=== PATIENT | female | born 1945 | race Caucasian/White ===

== ENCOUNTER → 2017-05-07 | Outpatient (CLI) | payer OTHER ==
[~2017-05-07] MED LIST: ALBU0.08 INH; ALBUAER19 INH; AMLO10TA2 PO; ASPCH81X PO; ASTN NAE; ATOR-22 PO; AZIT250T PO; CALC-416 PO; CETI10TA10 PO; DIBU1OIN EX; DOCU100C PO; DVN/160 PO; FISHOIL PO; FLUT0.15; FLX/5 PO; FURO-85 PO; MCRK20 PO; MECL25TA2 PO; MOME200A INH; MONT1TAB5 PO; MULTTAB58 PO; PRED10TA PO; SALI0.6510 NAE; SENN8.6T13 PO; TIOTCAP INH; VALA1TAB PO; [UNRECOGNIZED DRUG - CODE] RE
[2017-05-07 13:24] LABS: BASO % 0.4 %; BASO ABS # 0.03 K/uL (0-0.2); COMPLETE YES; EOS % 9.5 %; HEMATOCRIT 41.2 % (37-47); IG% 0.5 %; LYMPH ABS # 1.25 K/uL (1.2-3.4); MEAN CELL VOLUME 93.6 fL (80-100); MEAN PLATELET VOLUME 9.2 fL (7.4-10.4); MONO % 7.3 %; NEUT % 66.3 %; PLATELET COUNT 317 K/uL (130-400); WHITE BLOOD COUNT 7.82 K/uL (4.8-10.8)
[2017-05-07 14:36] LABS: ALT/SGPT 23 U/L (12-78); BLOOD UREA NITROGEN 13 mg/dl (7-18); BUN/CREATININE RATIO 15.6 (10-20); CALCIUM 9.5 mg/dl (8.5-10.1); CARBON DIOXIDE 26 mmol/L (21-32); CHLORIDE 106 mmol/L (98-107); CHOLESTEROL 165 mg/dl (0-200); CREATININE 0.85 mg/dl (0.60-1.20); GLUCOSE 104 mg/dl (70-99); POTASSIUM 4.1 mmol/L (3.5-5.1); SODIUM 141 mmol/L (136-145); TRIGLYCERIDES 172 mg/dl (0-150); VERY LOW DENSITY LIPOPROT CALC 34 mg/dl
[2017-05-07 14:53] LABS: ALB/GLOB RATIO 0.9 (0.9-2); ALKALINE PHOSPHATASE 125 U/L (45-117); AST/SGOT 16 U/L (15-37); CHOLESTEROL/HDL RATIO 3.2; HDL CHOLESTEROL 51 mg/dl; LDL CHOLESTEROL CALCULATED 80 mg/dl
== END | disposition home or self-care (01) ==
LOC: C.LAB1850 11:14
PROVIDERS: ATTEND Nurse Practitioner Family
DX: J45.909 Unspecified asthma, uncomplicated (principal); E78.00 Pure hypercholesterolemia, unspecified; I10 Essential (primary) hypertension; R68.89 Other general symptoms and signs

== ENCOUNTER 2017-07-29 12:31 | Emergency (ER) | payer OTHER ==
[~2017-07-29] VITALS: Ht 157.5 cm; Wt 95.0 kg
[~2017-07-29 12:31] MED LIST changes: +SENN1TAB80 PO; -SENN8.6T13 PO
[2017-07-29 12:38] VITALS: TEMP 36.7; Ht 157.5 cm; Wt 95.0 kg
[2017-07-29] MEDS ORDERED: ALBUT/IPRATROP 3MG/0.5MG NEB 3 ML VIAL INH STA (12:46)
[2017-07-29] MEDS ORDERED: AZITHROMYCIN 250 MG TAB PO STA (12:46)
[2017-07-29] MEDS ORDERED: METHYLPREDNISOLONE 125 MG VIAL IV STA (12:46)
--- NOTE | 2017-07-29 13:10 | EMERGENCY ROOM VISIT NOTE ---
History Report prepared by Car: Ely Nixon Under the Supervision of: Dr. Kvng Bright M.D. First contact with patient: 12:43 Chief Complaint: RESPIRATORY PROBLEMS Stated Complaint: WEEZING Nursing Triage Summary: hx asthma patient states she started wheezing yesterday and has gotten worse. patient states she used albuterol and cold pills with some relief. History of Present Illness The patient is a 72 year old female who presents to the Emergency Room with complaints of constant wheezing beginning yesterday. Presently, the patient does not feel short of breath. She reports that her symptoms today are less severe than yesterday. The patient notes wheezing and a productive cough but denies any chest pain, sore throat or sinus congestion. She has a nebulizer and notes using it today with minimal relief. The patient has used steroids for issues with her lungs which has helped in the past. The patient notes recent sick contact with her family. The patient has a history of asthma Source of History: patient Onset: yesterday Position: other (generalized) Quality: other (wheezing) Timing: constant Associated Symptoms: + cough, No sorethroat, No chest pain, No SOB Review of Systems See HPI for pertinent positives & negatives. A total of 10 systems reviewed and were otherwise negative. Past Medical & Surgical Medical Problems: (1) Appendectomy (2) Benign hypertension (3) section (4) DIZZINESS AND GIDDINESS (5) HYPERLIPIDEMIA NEC/NOS (6) Hysterectomy Family History FH: cancer FH: heart disease Hypertension Social History Smoking Status: Never Smoker Alcohol Use: none Marital Status: Occupation Status: retired Current/Historical Medications Scheduled Amlodipine Besylate (Norvasc), 10 MG PO DAILY Aspirin (Aspirin Chewable), 81 MG PO DAILY Atorvastatin (Lipitor), 20 MG PO DAILY Azelastine Hcl (Astelin Nasal [place]), 2 SPRAYS FAM BID Azithromycin (Zithromax Z-Zhang), 0 PO UD Calcium Carbonate-Vitamin D (Calcium 600+D3), 1 TABS PO DAILY Cetirizine Hcl (Zyrtec), 1 TAB PO DAILY Docusate Sodium (Stool Softener), 100 MG PO BID Fish Oil ([place]-3), 1,000 MG PO DAILY Fluticasone Prop/Salmeterol (Advair Diskus 100/50 60 Dose), 1 PUFF INH BID Fluticasone Propionate (Nasal) (Flonase Allergy Relief), 100 MCG NA UD Furosemide (Lasix), 20 MG PO DAILY Montelukast Sodium (Montelukast Sodium), 1 TAB PO QPM Multiple Vitamin (Multivitamin), 1 TAB PO DAILY Potassium Ext Rel (Klor-Con), 40 MEQ PO DAILY Prednisone (Prednisone), 0 PO DAILY Sennosides (Senna Lax), 8.6 MG PO HS Tiotropium [place] (Spiriva Handihaler), 1 CAP INH DAILY Valsartan (Diovan), 160 MG PO DAILY Scheduled PRN Albuterol Hfa (Ventolin Hfa), 2 PUFFS INH QID PRN for SOB/Wheezing Albuterol Sulf (Proventil 0.083% 2.5MG/3ML), 2.5 MG INH Q4 PRN for SOB/Wheezing Cyclobenzaprine HCl (Cyclobenzaprine HCl), 5 MG PO TID PRN for Muscle Spasms Dibucaine (Rectal) (Dibucaine), 1 APPLN EX BID PRN for HEMMOROIDS Meclizine Hcl (Meclizine Hcl), 1 TAB PO TID PRN for DIZZINESS,VERTIGO Naproxen (Naprosyn), 500 MG PO BID PRN for Pain Ujidwhcew-Jtdannowtewtz-Vwdmlm (Preparation H), 1 APPLN [place] UD PRN for Hemorrhoids Saline ([place] Nasal [place]), 1 SPRAY FAM Q2-4HRS PRN for Nasal Dryness/Congestion Valacyclovir Hcl (Valtrex), 2 GM PO UD PRN for FLARES Allergies Coded Allergies: Quinolones (Verified Allergy, Intermediate, ITCHING, HIVES, 08/24/15) Dust (Verified Allergy, Mild, UNKNOWN, 08/24/15) Levofloxacin (Verified Allergy, Mild, HIVES, 08/24/15) Physical Exam Vital Signs Date Time Temp Pulse Resp B/P (MAP) Pulse Ox O2 Delivery O2 Flow Rate FiO2 07/29/17 14:14 72 18 140/81 98 Room Air 07/29/17 13:18 82 07/29/17 13:18 78 18 135/88 99 Nebulizer 07/29/17 13:16 92 Room Air 07/29/17 12:38 36.7 80 24 135/74 93 Room Air Physical Exam GENERAL: Patient is in no acute distress. HEENT: No acute trauma, normocephalic atraumatic, mucous membranes moist, no nasal congestion, no scleral icterus, no throat erythema or exudate. NECK: No stridor, no adenopathy, no meningismus, trachea is midline. LUNGS: Bilateral wheezing with scattered crackles, breath sounds equal. HEART: Without murmurs gallops or rubs, regular rate and rhythm. ABDOMEN: Soft, nontender, bowel sounds positive, no hernias, no peritonitis. EXTREMITIES: No cyanosis or edema, full range of motion of all the joints without pain or difficulty, no signs for acute trauma. NEUROLOGIC: Oriented x 3, no acute motor or sensory deficits, no focal weakness. SKIN: No rash, no jaundice, no diaphoresis. Medical Decision & Procedures ER Provider Diagnostic Interpretation: Radiology results as stated below per my review and radiologist interpretation: CHEST ONE VIEW PORTABLE FINDINGS: Cardiomediastinal silhouette normal. Lungs and pleural spaces clear. Osseous structures normal. Upper abdomen normal. IMPRESSION: 1. No acute cardiopulmonary disease. Electronically signed by: Manjinder Espitia M.D. Laboratory Results 07/29/17 13:05 Red Blood Count 4.20, Mean Corpuscular Volume 92.9, Mean Corpuscular Hemoglobin 29.5, Mean Corpuscular Hemoglobin Concent 31.8, Mean Platelet Volume 9.3, Neutrophils (%) (Auto) 58.8, Lymphocytes (%) (Auto) 21.9, Monocytes (%) (Auto) 12.6, Eosinophils (%) (Auto) 5.9, Basophils (%) (Auto) 0.4, Neutrophils # (Auto ) 2.91, Lymphocytes # (Auto) 1.08, Monocytes # (Auto) 0.62, Eosinophils # (Auto ) 0.29, Basophils # (Auto) 0.02 07/29/17 13:05 Test 07/29/17 13:05 07/29/17 13:12 White Blood Count 4.94 K/uL (4.8-10.8) Red Blood Count 4.20 M/uL (4.2-5.4) Hemoglobin 12.4 g/dL (12.0-16.0) Hematocrit 39.0 % (37-47) Mean Corpuscular Volume 92.9 fL (80-100) Mean Corpuscular Hemoglobin 29.5 pg (25-34) Mean Corpuscular Hemoglobin Concent 31.8 g/dl (32-36) Platelet Count 238 K/uL (130-400) Mean Platelet Volume 9.3 fL (7.4-10.4) Neutrophils (%) (Auto) 58.8 % Lymphocytes (%) (Auto) 21.9 % Monocytes (%) (Auto) 12.6 % Eosinophils (%) (Auto) 5.9 % Basophils (%) (Auto) 0.4 % Neutrophils # (Auto) 2.91 K/uL (1.4-6.5) Lymphocytes # (Auto) 1.08 K/uL (1.2-3.4) Monocytes # (Auto) 0.62 K/uL (0.11-0.59) Eosinophils # (Auto) 0.29 K/uL (0-0.5) Basophils # (Auto) 0.02 K/uL (0-0.2) RDW Standard Deviation 51.1 fL (36.4-46.3) RDW Coefficient of Variation 15.1 % (11.5-14.5) Immature Granulocyte % (Auto) 0.4 % Immature Granulocyte # (Auto) 0.02 K/uL (0.00-0.02) Anion Gap 8.0 mmol/L (3-11) Est Creatinine Clear Calc Drug Dose 61.2 ml/min Estimated GFR () 75.5 Estimated GFR (Non- 65.2 BUN/Creatinine Ratio 13.0 (10-20) Calcium Level 8.8 mg/dl (8.5-10.1) Total Bilirubin 0.6 mg/dl (0.2-1) Aspartate Amino Transf (AST/SGOT) 25 U/L (15-37) Alanine Aminotransferase (ALT/SGPT) 28 U/L (12-78) Alkaline Phosphatase 106 U/L (45-117) Troponin I < 0.015 ng/ml (0-0.045) Total Protein 6.9 gm/dl (6.4-8.2) Albumin 3.6 gm/dl (3.4-5.0) Globulin 3.3 gm/dl (2.5-4.0) Albumin/Globulin Ratio 1.1 (0.9-2) Influenza Type A Antigen Neg for Influ A (NEG) Influenza Type B Antigen Neg for Influ B (NEG) Laboratory results reviewed by me. Medications Administered Medications (Trade) Dose Ordered Sig/Hanna Route Start Time Stop Time Status Last Admin Dose Admin Albuterol/ Ipratropium (Duoneb) 3 ml NOW STAT INH 07/29/17 12:46 07/29/17 12:49 DC 07/29/17 13:05 3 ML Methylprednisolone Sodium Succinate (Solu-Medrol IV) 80 mg NOW STAT IV 07/29/17 12:46 07/29/17 12:49 DC 07/29/17 13:05 80 MG Azithromycin (Zithromax Tab) 500 mg NOW STAT PO 07/29/17 12:46 07/29/17 12:49 DC 07/29/17 13:04 500 MG ECG Indication: SOB/dyspnea Rate (beats per minute): 77 Rhythm: normal sinus Findings: no ectopy, other (non-specific ST changes) Comparison ECG Date: 12/10/2013 Change: no significant change ED Course 1244: The patient was evaluated in room B9. A complete history and physical exam was performed. 1246: Ordered Zithromax Tab 500 mg PO, Solu-Medrol IV 80 mg IV, Duoneb 3 ml INH. 1437: The patient is feeling better and would like to go home. 1445: Reevaluated the patient. Discussed results and discharge instructions: She verbalized understanding and agreement. The patient is ready for discharge. Medical Decision Differential diagnoses include: pneumonia, bronchitis, CHF, pneumothorax, influenza, anemia, electrolyte imbalance. There is no leukocytosis or concerning anemia. No significant electrolyte abnormality, kidney failure or hepatitis. Influenza testing is negative. EKG shows a sinus rhythm, no acute ischemia. Cardiac enzyme testing 1 is not consistent with acute cardiac injury. Chest film does not show pneumonia, pneumothorax or CHF. Blood cultures are pending. The patient was given a DuoNeb, she received IV Solu-Medrol and a dose of oral Zithromax. The patient likely has an acute bronchitis with a flare of her asthma. She normally takes prednisone and Zithromax-her current prescription is outdated and she needs a refill. The patient will be discharged with continued albuterol use, the prednisone and Zithromax as prescribed. She will see her doctor this week and return for worsening issues with her breathing. Medication Reconcilliation Current Medication List: was personally reviewed by me Blood Pressure Screening Patient's blood pressure: Elevated blood pressure Blood pressure disposition: Elevated BP felt to be situational Impression Primary Impression: Acute bronchitis Additional Impression: Exacerbation of asthma Scribe Attestation The scribe's documentation has been prepared under my direction and personally reviewed by me in its entirety. I confirm that the note above accurately reflects all work, treatment, procedures, and medical decision making performed by me. Departure Information Dispostion Home / Self-Care Prescriptions Azithromycin (ZITHROMAX Z-ZHANG) 250 Mg Tab 0 PO UD, #1 PKT Prov: Kvng Bright M.D. 07/29/17 Prednisone (Prednisone) 20 Mg Tab 0 PO DAILY, #18 TAB 3 DAILY FOR 3 DAYS, THEN 2 DAILY FOR 3 DAYS, THEN 1 DAILY FOR 3 DAYS. Prov: Kvng Bright M.D. 07/29/17 Referrals Arthur Mead III, CRNP (PCP) Forms HOME CARE DOCUMENTATION FORM, IMPORTANT VISIT INFORMATION, WORK / SCHOOL INSTRUCTIONS Patient Instructions My [facility] Additional Instructions prednisone and zithromax as directed use the albuterol neb every 4-6 hours see ricarda guardado this week for a recheck return to the ER for worsening breathing or worsening symptoms chest film today was clear Problem Qualifiers
--- NOTE | 2017-07-29 13:13 | DIAGNOSTIC IMAGING REPORT ---
CHEST ONE VIEW PORTABLE CLINICAL HISTORY: 72 years-old Female presenting with EVALUATE RESPIRATORY DISTRESS.DYSPNEA. TECHNIQUE: Portable upright AP view of the chest was obtained. COMPARISON: 06/04/2017. FINDINGS: Cardiomediastinal silhouette normal. Lungs and pleural spaces clear. Osseous structures normal. Upper abdomen normal. IMPRESSION: 1. No acute cardiopulmonary disease. Electronically signed by: Manjinder Espitia M.D. 07/29/2017 1:12 PM Dictated Date/Time: 07/29/2017 1:11 PM
[2017-07-29 13:16] VITALS: O2SAT 92
[2017-07-29] MEDS ORDERED: NAPR-1169 PO (13:35)
[2017-07-29] MEDS ORDERED: POTA20TA16 PO (13:35)
[2017-07-29] MEDS ORDERED: ADVIN10/60 INH (13:35)
[2017-07-29] MEDS ORDERED: ALBINS/ INH (13:35)
[2017-07-29] MEDS ORDERED: OMEG10007 PO (13:35)
[2017-07-29] MEDS ORDERED: MECL1TAB42 PO (13:35)
[2017-07-29] MEDS ORDERED: VNTHFA/IN INH (13:35)
[2017-07-29] MEDS ORDERED: SPRIN/30 INH (13:35)
[2017-07-29] MEDS ORDERED: VALA1TAB31 PO (13:37)
[2017-07-29] MEDS ORDERED: PRAMCRE2 PR (13:37)
[2017-07-29 13:44] LABS: BASO % 0.4 %; BASO ABS # 0.02 K/uL (0-0.2); COMPLETE YES; EOS % 5.9 %; IG% 0.4 %; LYMPH % 21.9 %; LYMPH ABS # 1.08 K/uL (1.2-3.4); MEAN CELL VOLUME 92.9 fL (80-100); MEAN CORPUSCULAR HEMOGLOBIN 29.5 pg (25-34); MEAN CORPUSCULAR HGB CONC 31.8 g/dl (32-36); MEAN PLATELET VOLUME 9.3 fL (7.4-10.4); MONO % 12.6 %; NEUT % 58.8 %; PLATELET COUNT 238 K/uL (130-400); WHITE BLOOD COUNT 4.94 K/uL (4.8-10.8)
[2017-07-29 14:05] LABS: ALT/SGPT 28 U/L (12-78); AST/SGOT 25 U/L (15-37); BLOOD UREA NITROGEN 11 mg/dl (7-18); CALCIUM 8.8 mg/dl (8.5-10.1); CARBON DIOXIDE 25 mmol/L (21-32); CHLORIDE 107 mmol/L (98-107); CREATININE 0.88 mg/dl (0.60-1.20); GLUCOSE 108 mg/dl (70-99); POTASSIUM 3.6 mmol/L (3.5-5.1); SODIUM 140 mmol/L (136-145)
[2017-07-29 14:10] LABS: ALB/GLOB RATIO 1.1 (0.9-2); ALKALINE PHOSPHATASE 106 U/L (45-117)
[2017-07-29 14:14] VITALS: BP 140/81; PULSE 72; O2SAT 98
[2017-07-29] MEDS ORDERED: PRED20TA PO (14:36)
[2017-07-29] MEDS ORDERED: AZITTAB PO (14:36)
== END 2017-07-29 14:58 | disposition home or self-care (01) ==
LOC: C.EDB 12:32
DX: J20.9 Acute bronchitis, unspecified (principal); J45.901 Unspecified asthma with (acute) exacerbation; Z79.899 Other long term (current) drug therapy; I10 Essential (primary) hypertension

== ENCOUNTER → 2017-10-08 | Outpatient (CLI) | payer OTHER ==
[~2017-10-08] MED LIST changes: +ADVIN10/60 INH; +ALBINS/ INH; -ALBU0.08 INH; -ALBUAER19 INH; -AZIT250T PO; -FISHOIL PO; -MCRK20 PO; +MECL1TAB42 PO; -MECL25TA2 PO; -MOME200A INH; +NAPR-1169 PO; +OMEG10007 PO; +POTA20TA16 PO; +PRAMCRE2 PR; -PRED10TA PO; +PRED20TA PO; +SENN-61 PO; +SPRIN/30 INH; -TIOTCAP INH; -VALA1TAB PO; +VALA1TAB31 PO; +VNTHFA/IN INH; -[UNRECOGNIZED DRUG - CODE] RE
== END | disposition home or self-care (01) ==
LOC: C.LABSPEC 17:39
PROVIDERS: ATTEND Nurse Practitioner Family
DX: R39.9 Unspecified symptoms and signs involving the genitourinary system (principal)

== ENCOUNTER → 2017-10-16 | Outpatient (CLI) | payer OTHER ==
[~2017-10-16] MED LIST changes: -PRED20TA PO; -SENN1TAB80 PO
== END | disposition home or self-care (01) ==
LOC: C.LABSPEC 17:27
PROVIDERS: ATTEND Nurse Practitioner Adult Health
DX: R33.9 Retention of urine, unspecified (principal); R35.0 Frequency of micturition

== ENCOUNTER → 2017-10-23 | Outpatient (CLI) | payer OTHER ==
[2017-10-23 10:57] LABS: BASO % 0.6 %; BASO ABS # 0.04 K/uL (0-0.2); EOS % 9.2 %; EOS ABS # 0.59 K/uL (0-0.5); HEMATOCRIT 42.6 % (37-47); HEMOGLOBIN 14.5 g/dL (12.0-16.0); IG# 0.02 K/uL (0.00-0.02); LYMPH ABS # 1.22 K/uL (1.2-3.4); MEAN CELL VOLUME 92.6 fL (80-100); MEAN CORPUSCULAR HEMOGLOBIN 31.5 pg (25-34); MEAN PLATELET VOLUME 9.2 fL (7.4-10.4); MONO % 6.1 %; MONO ABS # 0.39 K/uL (0.11-0.59); NEUT % 64.8 %; NEUT ABS # 4.15 K/uL (1.4-6.5); PLATELET COUNT 322 K/uL (130-400); RED CELL DISTRIBUTION WIDTH CV 14.6 % (11.5-14.5); RED CELL DISTRIBUTION WIDTH SD 49.2 fL (36.4-46.3); WHITE BLOOD COUNT 6.41 K/uL (4.8-10.8)
[2017-10-23 11:04] LABS: HEMOGLOBIN A1C 5.4 % (4.5-5.6)
[2017-10-23 11:27] LABS: ALBUMIN 3.7 gm/dl (3.4-5.0); ALT/SGPT 31 U/L (12-78); BLOOD UREA NITROGEN 9 mg/dl (7-18); CALCIUM 9.3 mg/dl (8.5-10.1); CARBON DIOXIDE 27 mmol/L (21-32); GLUCOSE 105 mg/dl (70-99); POTASSIUM 3.3 mmol/L (3.5-5.1); SODIUM 139 mmol/L (136-145)
[2017-10-23 11:30] LABS: ALKALINE PHOSPHATASE 129 U/L (45-117); AST/SGOT 18 U/L (15-37); CHOLESTEROL 171 mg/dl (0-200); LDL CHOLESTEROL CALCULATED 75 mg/dl; TOTAL PROTEIN 7.7 gm/dl (6.4-8.2)
== END | disposition home or self-care (01) ==
LOC: C.LAB1850 10:03
PROVIDERS: ATTEND Nurse Practitioner Family
DX: Z00.00 Encounter for general adult medical examination without abnormal findings (principal); E78.00 Pure hypercholesterolemia, unspecified

== ENCOUNTER → 2017-10-23 | Day surgery (SDC) | payer OTHER ==
[2017-10-15 14:59] VITALS: BMI 37.0
[~2017-10-23] VITALS: Ht 157.5 cm; Wt 91.8 kg
[~2017-10-23] MED LIST changes: +LIDOCAINE HCL 2% 2 ML VIAL (20MG/ML) ONE; +PROPOFOL IV EMULSION 10 MG/ML 20 ML VIAL IV ONE; +SODIUM CHLORIDE 0.9% 500ML 500 ML IV ONE
--- NOTE | 2017-10-23 08:28 | Endo History and Physical ---
History & Physical Date of Service: Oct 23, 2017. Chief Complaint: h/o polyps Referring Physician: History of Present Illness h/o polyps Past Medical History Arthritis, Asthma, Cancer, High Cholesterol, Hypertension Past Surgical History Hx Cardiac Surgery: No Hx Internal Defibrillator: No Hx Pacemaker: No Hx Abdominal Surgery: Yes (C SECTION X3, APPY) Hx of Implantable Prosthesis: No Hx Post-Op Nausea and Vomiting: No Hx Cancer Surgery: Yes (GERARD BSO, SKIN EXCISION) Hx Thoracic Surgery: No Hx Orthopedic: No Hx Urinary Tract Surgery: No Family History None Social History Smoking Status: Never Smoker Hx Substance Use: No Hx Alcohol Use: No Allergies Coded Allergies: Quinolones (Verified Allergy, Intermediate, ITCHING, HIVES, 10/15/17) Dust (Verified Allergy, Mild, SNEEZING WITH DUST MITES, 10/15/17) Levofloxacin (Verified Allergy, Mild, HIVES, 10/15/17) Current Medications Reported Home Medications Medications Dose Route/Sig Max Daily Dose Days Date Category Dose Instructions Senokot (Senna) 8.6 Mg Tab 1 Tab PO HS PRN 10/15/17 Reported Valtrex (Valacyclovir Hcl) 1 Gm Tab 2 Gm PO UD PRN 07/29/17 Reported Preparation H (Jdrpmlhmk-Yknqxgnxhlwir-Tubiuq) 1 Cre Cre 1 Appln [place] UD PRN 07/29/17 Reported Proventil 0.083% 2.5MG/3ML (Albuterol Sulf) 2.5 Mg/3 Ml Nebu 2.5 Mg INH Q4 PRN 07/29/17 Reported Ventolin Hfa (Albuterol) 200 Puffs/53123 Mcg Aers 2 Puffs INH QID PRN 07/29/17 Reported [place]-3 (Fish Oil) 1 Ea Cap 1,000 Mg PO HS 07/29/17 Reported Meclizine Hcl 25 Mg Tab 1 Tab PO TID PRN 10 07/29/17 Reported Klor-Con (Potassium Chloride) 20 Meq Tabcr 40 Meq PO QAM 07/29/17 Reported Naprosyn (Naproxen) 500 Mg Tab 500 Mg PO BID PRN 07/29/17 Reported Spiriva Handihaler (Tiotropium [place]) 30 Puff/540 Mcg Aerp 1 Cap INH DAILY AT NOON 07/29/17 Reported Advair Diskus 100/50 60 Dose (Fluticasone Prop/Salmeterol) 1 Ea Aerp 1 Puff INH BID 07/29/17 Reported Cyclobenzaprine HCl 5 Mg Tab 5 Mg PO TID PRN 08/24/15 Reported Zyrtec (Cetirizine Hcl) 10 Mg Tab 1 Tab PO HS 30 08/24/15 Reported Flonase Allergy Relief (Fluticasone Propionate (Nasal)) 50 Mcg/Act Spr 100 Mcg NA UD 08/24/15 Reported ADMIN 2 SPRAYS INTO EACH NOSTRIL DAILY Lasix (Furosemide) 20 Mg Tab 20 Mg PO QAM 02/15/15 Reported Montelukast Sodium 10 Mg Tab 1 Tab PO QPM 02/15/15 Reported Multivitamin (Multiple Vitamin) 1 Tab Tab 1 Tab PO HS 02/15/15 Reported Aspirin Chewable (Aspirin) 81 Mg Chew 81 Mg PO HS 12/10/13 Reported Calcium 600+D3 (Calcium Carbonate-Vitamin D) 1 Tab Tab 1 Tabs PO QAM 12/10/13 Reported Norvasc (Amlodipine Besylate) 10 Mg Tab 10 Mg PO QAM 12/10/13 Reported Stool Softener (Docusate Sodium) 100 Mg Cap 100 Mg PO BID 07/16/13 Reported Dibucaine (Dibucaine (Rectal)) 1 % Oin 1 Appln EX BID PRN 07/16/13 Reported Astelin Nasal [place] (Azelastine Hcl) 200 Sprays/30 Ml [place] 2 Sprays FAM BID 01/26/13 Reported Diovan (Valsartan) 160 Mg Tab 160 Mg PO QAM 09/28/12 Reported [place] Nasal [place] (Saline) 0.65 % Spr 1 [place] FAM Q2-4HRS PRN 09/25/12 Reported Lipitor (Atorvastatin Calcium) 20 Mg Tab 20 Mg PO QAM 05/29/06 Reported Vital Signs Weight (Kilograms): 91.82 Height (Feet): 5 Height (Inches): 2 Physical Exam General Appearance: WD/WN, no apparent distress Assessment and Plan colonoscopy today
[2017-10-23 08:34] VITALS: Ht 157.5 cm; Wt 91.8 kg
--- NOTE | 2017-10-23 09:25 | Discharge Instructions ---
Endoscopy Patient Instructions Date / Procedure(s) Performed Oct 23, 2017. Colonoscopy Allergy Information Coded Allergies: Quinolones (Verified Allergy, Intermediate, ITCHING, HIVES, 10/23/17) Dust (Verified Allergy, Mild, SNEEZING WITH DUST MITES, 10/23/17) Levofloxacin (Verified Allergy, Mild, HIVES, 10/23/17) Discharge Date / Findings Oct 23, 2017. 2 small polyps; diverticulosis Medication Instructions Stopped Medication(s): TOOK ASPIRIN 10/22/17 Restart Stopped Medication(s): OK to resume home medications Provider Instructions Activity Restrictions - No exercising or heavy lifting for 24 hours. - Do not drink alcohol the day of the procedure. - Do not drive a car or operate machinery until the day after the procedure. - Do not make any important decisions or sign important papers in 24 hours after the procedure. Following Day: - Return to full activity which may include returning to work/school. Diet Start your diet with liquids and light foods (jello, soup, juice, toast). Then eat your usual diet if not nauseated. Treatment For Common After Affects For mild abdominal pain, bloating, or excessive gas: - Rest - Eat lightly - Lie on right side Follow-Up Information Follow-up with CA MULLER NP as scheduled Anesthesia Information What You Should Know You have had a procedure that required some medicine to reduce anxiety and discomfort. This treatment is called moderate sedation. After receiving the treatment, you may be sleepy, but you will be able to breathe on your own. The effects of the treatment may last for several hours. Follow these instructions along with Activity/Diet recommendations noted above: * Do NOT do anything where dizziness or clumsiness would be dangerous. * Rest quietly at home today, then you can be up and about tomorrow. * Have a responsible person stay with you the rest of today. * You may have had an I.V. today. If so, you may take the dressing off later today. Recommendations Call your doctor if: * Trouble breathing * Continuous vomiting for more than 24 hours * Temperature above 101 degrees * Severe abdominal pain or bloating * Pain not relieved by pain medicine ordered * There is increased drainage or redness from any incision * A large amount of rectal bleeding greater than 2-3 tablespoons. (If you had a polyp/s removed or have hemorrhoids, a small amount of blood - from the rectum is to be expected.) * You have any unanswered questions or concerns. IN THE EVENT OF A SERIOUS EMERGENCY, GO TO THE NEAREST EMERGENCY ROOM Your discharge instructions were prepared by provider Sharmila Rubio. Patient Instructions Signature Page Alesia Lopez Patient (or Guardian) Signature/Date: I have read and understand the instructions given to me by my caregivers. Caregiver/RN/Doctor Signature/Date: The above-named patient and/or guardian has received patient instructions on this date. + Original Patient Signature Page (only) stays with chart. Please make copy for patient.
--- NOTE | 2017-10-23 09:25 | GI REPORT ---
Procedure Date: 10/23/2017 8:54 AM Procedure: Colonoscopy Indications: Surveillance: Personal history of adenomatous polyps on last colonoscopy 3 years ago, High risk colon cancer surveillance: Personal history of adenoma with high grade dysplasia Medicines: Propofol per Anesthesia Complications: No immediate complications. Estimated blood loss: Minimal. Estimated Blood Loss: Estimated blood loss: minimal. Procedure: Pre-Anesthesia Assessment: - Prior to the procedure, a History and Physical was performed, and patient medications, allergies and sensitivities were reviewed. The patient's tolerance of previous anesthesia was reviewed. - The risks and benefits of the procedure and the sedation options and risks were discussed with the patient. All questions were answered and informed consent was obtained. - Patient identification and proposed procedure were verified prior to the procedure by the physician and the nurse. The procedure was verified in the pre-procedure area in the procedure room. - Mental Status Examination: alert and oriented. Airway Examination: normal oropharyngeal airway and neck mobility. Respiratory Examination: clear to auscultation. CV Examination: normal. Abdominal Examination: bowel sounds present, abdomen soft and non-tender, no masses or organomegaly noted. - ASA Grade Assessment: III - A patient with severe systemic disease. After I obtained informed consent, the scope was passed under direct vision. Throughout the procedure, the patient's blood pressure, pulse, and oxygen saturations were monitored continuously. The scope was introduced through the anus and advanced to the terminal ileum. The colonoscopy was performed without difficulty. The patient tolerated the procedure well. The quality of the bowel preparation was good. Findings: The perianal and digital rectal examinations were normal. Pertinent negatives include normal sphincter tone and no palpable rectal lesions. The terminal ileum appeared normal. Multiple small and large-mouthed diverticula were found in the sigmoid colon. Two sessile polyps were found in the sigmoid colon. The polyps were 2 to 6 mm in size. These polyps were removed with a cold snare. Resection and retrieval were complete. Verification of patient identification for the specimen was done by the physician and nurse using the patient's name and date. Estimated blood loss was minimal. A tattoo was seen in the sigmoid colon. A post-polypectomy scar was found at the tattoo site. External and internal hemorrhoids were found during retroflexion and during perianal exam. Impression: - The examined portion of the ileum was normal. - Diverticulosis in the sigmoid colon. - Two 2 to 6 mm polyps in the sigmoid colon, removed with a cold snare. Resected and retrieved. - A tattoo was seen in the sigmoid colon. A post-polypectomy scar was found at the tattoo site. - External and internal hemorrhoids. Recommendation: - Await pathology results. - Repeat colonoscopy for surveillance based on pathology results. - Return to primary care physician as previously scheduled. - Discharge patient to home. Sharmila Rubio D.O. Sharmila Rubio, 10/23/2017 9:24:23 AM This report has been signed electronically. Note Initiated On: 10/23/2017 8:54 AM I attest to the content of the Intraoperative Record and orders documented therein, exceptions below
--- NOTE | 2017-10-23 09:42 | Anesthesiology Progress Note ---
Anesthesia Post Op Note Date & Time Oct 23, 2017 at 09:42 Vital Signs Pain Intensity: 0 Vital Signs Past 12 Hours Date Time Temp Pulse Resp B/P (MAP) Pulse Ox O2 Delivery O2 Flow Rate FiO2 10/23/17 09:30 80 20 132/64 (86) 95 Room Air 10/23/17 09:13 82 20 121/71 (88) 98 Room Air 10/23/17 08:32 36.0 90 20 113/77 (89) 95 Room Air Notes Mental Status: alert / awake / arousable, participated in evaluation Pt Amnestic to Procedure: Yes Nausea / Vomiting: adequately controlled Pain: adequately controlled Airway Patency, RR, SpO2: stable & adequate BP & HR: stable & adequate Hydration State: stable & adequate Anesthetic Complications: no major complications apparent
[2017-10-23 09:43] VITALS: BP 128/72; PULSE 79; O2SAT 96
== END | disposition home or self-care (01) ==
LOC: C.GI 08:10
PROVIDERS: ATTEND Internal Medicine
DX: Z12.11 Encounter for screening for malignant neoplasm of colon (principal); D12.5 Benign neoplasm of sigmoid colon; K64.8 Other hemorrhoids; K64.4 Residual hemorrhoidal skin tags; Z86.010 Personal history of colon polyps; I10 Essential (primary) hypertension; J45.909 Unspecified asthma, uncomplicated; Z85.41 Personal history of malignant neoplasm of cervix uteri; Z88.8 Allergy status to other drugs, medicaments and biological substances; Z88.0 Allergy status to penicillin; Z90.710 Acquired absence of both cervix and uterus; Z90.722 Acquired absence of ovaries, bilateral; Z90.79 Acquired absence of other genital organ(s)

== ENCOUNTER 2021-07-27 14:46 | Inpatient (IN) ==
--- NOTE | 2021-07-27 15:51 | XRay Report ---
XR chest 2V PA/lateral CLINICAL HISTORY: Shortness of breath. COMPARISON STUDY: Chest radiograph July 29, 2017. FINDINGS: Lung volumes are normal. Note is made of mild cardiomegaly without evidence for pulmonary e rowena. Moderate bilateral mid and lower lung airspace opacities are present. There is no pneumothorax or pleural effusion. IMPRESSION: Moderate bilateral airspace opacities consistent with viral pneumonia. Radiographic foll ow-up to ensure resolution is recommended. ACT 112: Negative or not required by law. Electronically signed by: Jorge Ferguson M.D. 07/27/2021 3:50 PM
[2021-07-27] MEDS ORDERED: dexAMETHasone**PF** 10 MG/ML VIAL IV ONE (16:03)
--- NOTE | 2021-07-27 16:07 | Emergency Department Note ---
History of Present Illness General Chief complaint: Shortness of Breath/Dyspnea Stated complaint: SOB Time Seen by Provider: 07/27/21 15:26 Source: patient History of Present Illness Provider complaint: Short of breath Onset (ago): day(s) Location: chest Pain Consistency: + constant Maximum Pain Intensity: 0 Quality: + other (Short of breath) Relieved By: + other (Oxygen) Associated symptoms: + cough, + malaise and + shortness of breath; no chest pain, no fever/chills or no nausea/vomiting This is a 76-year-old female who presents with flulike symptoms and shortness of breath. The patient states that she developed cold symptoms about 2 weeks ago. She had mostly sinus congestion and pressure. She was placed on steroids and had a negative Covid test at that time. She is vaccinated but has not had a booster shot. She states that her symptoms are not really going away. She does have a cough but denies any chest pain. She states that she felt short of breath this morning and her son checked her O2 saturation which was 88 on room air. She does not use supplemental oxygen at home. She denies any fevers, loss of taste or smell or diarrhea. She has had no abdominal pain or urinary symptoms and denies any swelling or pain to her lower extremities. She does state that her whole family has cold symptoms and multiple ones have been diagnosed with Covid. Home Medications Medication Instructions Recorded Confirmed Type amlodipine 10 mg tablet 10 mg PO QAM 07/13/18 07/27/21 History aspirin 81 mg chewable tablet 81 mg PO HS 07/13/18 07/27/21 History calcium carbonate 600 mg-vitamin 1 tab PO QAM 07/13/18 07/27/21 History D3 12.5 mcg (500 unit) capsule (Calcium 600 with Vitamin D3) cetirizine 10 mg tablet (Zyrtec) 10 mg PO HS 07/13/18 07/27/21 History dibucaine 1 % rectal ointment 1 applic VA BID PRN 07/13/18 07/27/21 History docusate sodium 100 mg capsule 100 mg PO BID 07/13/18 07/27/21 History multivitamin 1 tab PO HS 07/13/18 07/27/21 History omega 9-api-kmg-fish oil 1,000 mg 1,000 mg PO QAM 07/13/18 07/27/21 History (120 mg-180 mg) capsule (Fish Oil) phenylephrine 0.25 %-mineral oil 1 applic VA DIRECTED PRN 07/13/18 07/27/21 History 14 %-petrolatm 74.9 % rectal ointment (Preparation H) sennosides 8.6 mg tablet (Senokot) 17.2 mg PO HS 07/13/18 07/27/21 History sodium chloride 0.65 % nasal spray 1 spray INTRANASAL Q4H PRN 07/13/18 07/27/21 History aerosol ([place] Nasal) valacyclovir 1 gram tablet 2,000 mg PO DIRECTED PRN 07/13/18 07/27/21 History (Valtrex) azelastine 137 mcg (0.1 %) nasal 2 spray INTRANASAL BID #30 ml 09/07/19 07/27/21 Rx spray aerosol naproxen 500 mg tablet 500 mg PO BID PRN #60 tab 12/01/19 07/27/21 Rx albuterol sulfate See Rx Instructions .ROUTE 08/04/20 07/27/21 Rx .COMPLEX #75 unspecified umeclidinium 62.5 mcg/actuation 1 inh INHALATION DAILY #1 inhaler 11/08/20 07/27/21 Rx blister powder for inhalation (Incruse Ellipta) montelukast 10 mg tablet 10 mg PO HS 05/10/21 07/27/21 History potassium chloride 20 mEq 40 meq PO QAM 05/10/21 07/27/21 History tablet,extended release prednisone 10 mg tablet 10 mg PO UD 05/10/21 07/27/21 History tamsulosin 0.4 mg capsule 0.4 mg PO HS 05/10/21 07/27/21 History albuterol sulfate 90 mcg/actuation 2 puff INHALATION QID PRN 07/27/21 07/27/21 History aerosol inhaler atorvastatin 40 mg tablet 40 mg PO DAILY 07/27/21 07/27/21 History cholecalciferol (vitamin D3) 25 25 mcg PO DAILY 07/27/21 07/27/21 History mcg (1,000 unit) capsule (Vitamin D3) doxycycline hyclate 100 mg capsule 100 mg PO BID 07/27/21 07/27/21 History fluticasone 500 mcg-salmeterol 50 1 inh INHALATION BID 07/27/21 07/27/21 History mcg/dose blistr powdr for inhalation (Advair Diskus) fluticasone propionate 50 2 spray INTRANASAL DAILY 07/27/21 07/27/21 History mcg/actuation nasal spray,suspension (Flonase Allergy Relief) furosemide 20 mg tablet (Lasix) 20 mg PO QAM PRN 07/27/21 07/27/21 History meclizine 12.5 mg tablet 25 mg PO TID PRN 07/27/21 07/27/21 History valsartan 160 mg tablet 160 mg PO DAILY 07/27/21 07/27/21 History Allergies Allergy/AdvReac Type Severity Reaction Status Date / Time Quinolones Allergy Intermediate ITCHING, Verified 07/27/21 17:12 HIVES levofloxacin Allergy Mild HIVES Verified 07/27/21 17:12 Dust Allergy Mild SNEEZING Uncoded 07/27/21 17:12 WITH DUST MITES Past Med/Surg History Medical History Asthma inhalers daily/prn, nebulizer prn Chronic sinusitis Difficult airway for intubation pt states she was told this here at [facility] "they said I was difficult to intubate"--pt unable to provide any further details Diverticulitis History of ovarian cancer hysterectomy History of rheumatic fever as a child History of skin cancer on nose HLD (hyperlipidemia) Hypertension Morbid obesity with BMI of 45.0-49.9, adult Small bowel obstruction Surgical History History of colonoscopy History of nasal polypectomy History of total hysterectomy with bilateral salpingo-oophorectomy (BSO) S/P appendectomy S/P cataract surgery bilt S/P section x3 S/P nerve repair from left elbow to left little finger S/P wisdom tooth extraction Family History Mother Ovarian cancer Other Family history non-contributory No family history of adverse response to anesthesia Denies family history of Prostate cancer Myocardial infarction Breast cancer Colorectal cancer Social History Smoking Status: Unknown if ever smoked Second Hand Exposure: No; Hx Alcohol Use: No Hx Substance Use: No Preferred Language: Cymro Communication Ability: Effective Visual Impairment: No Limitations Hearing Ability: Normal Upholstery Cutter Required: No Beliefs That Will Affect Care: None marital status: / Current Living Situation: Family Current Living Situation Comment: w/son current occupational status: retired Feels Safe at Home: Yes Childhood Exposure to Second-Hand Smoke: Yes Dental Care, Regularly: Yes Physical Activity Frequency: 5-6 Times per Week Seatbelt Use: always Sunscreen Use: Yes Assistive Devices: Glasses and Nebulizer Review of Systems See HPI for pertinent positives & negatives. and A total of 10 systems reviewed and were otherwise negative Physical Exam Vital Signs Vital Signs - 24 hr 07/27/21 14:51 07/27/21 16:26 07/27/21 16:29 Temperature 36.8 C Temperature Source Temporal Artery Scan Pulse Rate 80 Pulse Rate [Finger] 76 Pulse Rhythm [Finger] Regular Pulse Strength [Finger] Normal Respiratory Rate 18 25 H Respiratory Effort / Characteristics Short of Breath SOB on Exertion Respiratory Depth Shallow Shallow Respiratory Pattern Tachypnea Blood Pressure 140/84 Blood Pressure [Right Arm] 143/83 H Blood Pressure Mean 102 Blood Pressure Mean [Right Arm] 103 Blood Pressure Position [Right Arm] Sitting Pulse Oximetry 89 L 93 Oxygen Delivery Method Room Air Nasal Cannula Nasal Cannula Oxygen Flow Rate 2 4 4 Sepsis Recent Fever Within 48 Hours No Sepsis New/Unexplained Change in Mental Status No Sepsis Action Taken by Nursing No Action Required 07/27/21 16:30 07/27/21 17:05 07/27/21 17:30 Temperature Temperature Source Pulse Rate 73 68 Pulse Rate [Finger] Pulse Rhythm [Finger] Pulse Strength [Finger] Respiratory Rate 22 20 Respiratory Effort / Characteristics Respiratory Depth Respiratory Pattern Blood Pressure 143/83 H 152/73 H Blood Pressure [Right Arm] Blood Pressure Mean 103 99 Blood Pressure Mean [Right Arm] Blood Pressure Position [Right Arm] Pulse Oximetry 94 95 96 Oxygen Delivery Method Nasal Cannula Oxygen Flow Rate 4 Sepsis Recent Fever Within 48 Hours Sepsis New/Unexplained Change in Mental Status Sepsis Action Taken by Nursing 07/27/21 18:00 07/27/21 18:30 07/27/21 19:30 Temperature Temperature Source Pulse Rate 70 73 Pulse Rate [Finger] 74 Pulse Rhythm [Finger] Regular Pulse Strength [Finger] Normal Respiratory Rate 22 24 24 Respiratory Effort / Characteristics Respiratory Depth Shallow Respiratory Pattern Blood Pressure 153/88 H 143/67 H Blood Pressure [Right Arm] 152/73 H Blood Pressure Mean 109 92 Blood Pressure Mean [Right Arm] 99 Blood Pressure Position [Right Arm] Sitting Pulse Oximetry 94 95 95 Oxygen Delivery Method Nasal Cannula Oxygen Flow Rate 4 Sepsis Recent Fever Within 48 Hours Sepsis New/Unexplained Change in Mental Status Sepsis Action Taken by Nursing Constitutional: Vital signs reviewed. O2 saturation is 89% on room air. Eyes: Pupils are equal round reactive to light. Conjunctiva are noninjected. ENT: Pharynx is clear without erythema or exudate. Mucous membranes are moist. Neck supple without meningeal signs. Respiratory: Clear to auscultation bilaterally. Breath sounds are equal bilaterally. Cardiovascular: Regular rate and rhythm. No rubs or gallops. GI: Soft, nondistended and nontender. Bowel sounds are present. Musculoskeletal: No lower extremity tenderness. Integumentary: No cyanosis. or jaundice. Neurological: The patient is awake and alert. No focal deficits. Psychiatric: Normal affect. Not anxious appearing. Course Administered Medications Discontinued Medications Dexamethasone Sodium Phosphate (DexamethasonePf 10 Mg/Ml Vial) 6 mg IV NOW ONE Stop: 07/27/21 16:04 Last Admin: 07/27/21 17:06 Dose: 6 mg Documented by: [id number] Potassium Chloride (Potassium Chloride 10 Meq Tabcr) 40 meq PO NOW STA Stop: 07/27/21 17:54 Last Admin: 07/27/21 18:03 Dose: 40 meq Documented by: [id number] Medical Decision Making Differential Diagnosis Multifocal pneumonia, COVID-19, influenza, bronchitis, pericarditis Medical Records Attestation: I reviewed the patient's medical records. I did perform a limited focused review of portions of the patient's old chart on the electronic medical record. The patient has had no recent pertinent visits to this hospital. Home Medications Current Medication List: was personally reviewed by me Laboratory Data Attestation: I reviewed the patient's lab results. Result diagrams: 07/27/21 17:00 07/27/21 17:00 Lab Results 07/27/21 07/27/21 07/27/21 Range/Units 17:00 17:00 17:00 WBC 7.06 (4.8-10.8) K/uL RBC 3.88 L (4.2-5.4) M/uL Hgb 11.5 L (12.0-16.0) g/dL Hct 35.7 L (37-47) % MCV 92.0 (80-100) fL MCH 29.6 (25-34) pg MCHC 32.2 (32-36) g/dL RDW Std Deviation 52.1 H (36.4-46.3) fL RDW Coeff of [place] 15.3 H (11.5-14.5) % Plt Count 195 (130-400) K/uL MPV 9.6 (7.4-10.4) fL Immature Gran % (Auto) 0.1 % Neut % (Auto) 86.4 % Lymph % (Auto) 6.8 % Bay % (Auto) 6.7 % Eos % (Auto) 0.0 % Baso % (Auto) 0.0 % Neut # (Auto) 6.10 (1.4-6.5) K/uL Lymph # (Auto) 0.48 L (1.2-3.4) K/uL Bay # (Auto) 0.47 (0.11-0.59) K/uL Eos # (Auto) 0.00 (0-0.5) K/uL Baso # (Auto) 0.00 (0-0.2) K/uL Immature Gran # (Auto) 0.01 (0.00-0.02) K/uL PT (9.0-12.0) Seconds INR (0.9-1.1) APTT (21.0-31.0) Seconds PTT Ratio Sodium 139 (136-145) mmol/L Potassium 2.8 L (3.5-5.1) mmol/L Chloride 108 H (98-107) mmol/L Carbon Dioxide 24 (21-32) mmol/L Anion Gap 7.0 (3-11) BUN 14 (7-18) mg/dl Creatinine 0.87 (0.6-1.2) mg/dl Est Cr Clr Drug Dosing 57.5 ml/min Est GFR ( Amer) 74.5 ml/min Est GFR (Non-Af Amer) 64.3 ml/min BUN/Creatinine Ratio 16.5 (10-20) Glucose 125 H (70-99) mg/dl Calcium 8.4 L (8.5-10.1) mg/dl Total Bilirubin 0.9 (0.2-1) mg/dl AST 34 (15-37) U/L ALT 45 (12-78) Alkaline Phosphatase 67 D (45-117) U/L Troponin I < 0.015 (0-0.045) ng/ml C-Reactive Protein 7.69 H (0-0.29) mg/dl NT-Pro-B Natriuret Pep 355 (0-1800) pg/ml Total Protein 6.4 (6.4-8.2) gm/dl Albumin 2.7 L (3.4-5.0) gm/dl Globulin 3.7 (2.5-4.0) gm/dl Albumin/Globulin Ratio 0.7 L (0.9-2) Procalcitonin 0.06 (0-0.5) ng/ml Urine Color Urine Appearance (Clear) Urine pH (4.5-7.5) Ur Specific [place] (1.000-1.030) Urine Protein (Negative) Urine Glucose (UA) (Negative) Urine Ketones (Negative) Urine Blood (Negative) Urine Nitrite (Negative) Urine Bilirubin (Negative) Urine Urobilinogen (Negative) Ur Leukocyte Esterase (Negative) Urine WBC (Auto) (0-5) /hpf Urine RBC (Auto) (0-4) /hpf U Hyaline Cast (Auto) (0-5) /lpf U Epithel Cells (Auto) (0-5) /lpf Urine Bacteria (Auto) (Negative) SARS-CoV-2 (PCR) (Negative) Influenza Type A (PCR) (Neg) Influenza Type B (PCR) (Neg) RSV (RT-PCR) (Neg) 07/27/21 07/27/21 07/27/21 Range/Units 17:00 17:05 18:10 WBC (4.8-10.8) K/uL RBC (4.2-5.4) M/uL Hgb (12.0-16.0) g/dL Hct (37-47) % MCV (80-100) fL MCH (25-34) pg MCHC (32-36) g/dL RDW Std Deviation (36.4-46.3) fL RDW Coeff of [place] (11.5-14.5) % Plt Count (130-400) K/uL MPV (7.4-10.4) fL Immature Gran % (Auto) % Neut % (Auto) % Lymph % (Auto) % Bay % (Auto) % Eos % (Auto) % Baso % (Auto) % Neut # (Auto) (1.4-6.5) K/uL Lymph # (Auto) (1.2-3.4) K/uL [place] # (Auto) (0.11-0.59) K/uL Eos # (Auto) (0-0.5) K/uL Baso # (Auto) (0-0.2) K/uL Immature Gran # (Auto) (0.00-0.02) K/uL PT 10.3 (9.0-12.0) Seconds INR 1.0 (0.9-1.1) APTT 26.2 (21.0-31.0) Seconds PTT Ratio 1.0 Sodium (136-145) mmol/L Potassium (3.5-5.1) mmol/L Chloride (98-107) mmol/L Carbon Dioxide (21-32) mmol/L Anion Gap (3-11) BUN (7-18) mg/dl Creatinine (0.6-1.2) mg/dl Est Cr Clr Drug Dosing ml/min Est GFR ( Amer) ml/min Est GFR (Non-Af Amer) ml/min BUN/Creatinine Ratio (10-20) Glucose (70-99) mg/dl Calcium (8.5-10.1) mg/dl Total Bilirubin (0.2-1) mg/dl AST (15-37) U/L ALT (12-78) Alkaline Phosphatase (45-117) U/L Troponin I (0-0.045) ng/ml C-Reactive Protein (0-0.29) mg/dl NT-Pro-B Natriuret Pep (0-1800) pg/ml Total Protein (6.4-8.2) gm/dl Albumin (3.4-5.0) gm/dl Globulin (2.5-4.0) gm/dl Albumin/Globulin Ratio (0.9-2) Procalcitonin (0-0.5) ng/ml Urine Color Yellow Urine Appearance Clear (Clear) Urine pH 5.0 (4.5-7.5) Ur Specific [place] 1.016 (1.000-1.030) Urine Protein 1+ H (Negative) Urine Glucose (UA) Negative (Negative) Urine Ketones Negative (Negative) Urine Blood Negative (Negative) Urine Nitrite Negative (Negative) Urine Bilirubin Negative (Negative) Urine Urobilinogen Negative (Negative) Ur Leukocyte Esterase Negative (Negative) Urine WBC (Auto) 1-5 (0-5) /hpf Urine RBC (Auto) 0-4 (0-4) /hpf U Hyaline Cast (Auto) 0 (0-5) /lpf U Epithel Cells (Auto) 10-20 H (0-5) /lpf Urine Bacteria (Auto) Negative (Negative) SARS-CoV-2 (PCR) POSITIVE A* (Negative) Influenza Type A (PCR) Negative (Neg) Influenza Type B (PCR) Negative (Neg) RSV (RT-PCR) Negative (Neg) Imaging Data Radiologist's Impression: Chest X-Ray 07/27/21 14:58 XR chest 2V PA/lateral CLINICAL HISTORY: Shortness of breath. COMPARISON STUDY: Chest radiograph July 29, 2017. FINDINGS: Lung volumes are normal. Note is made of mild cardiomegaly without evidence for pulmonary edema. Moderate bilateral mid and lower lung airspace opacities are present. There is no pneumothorax or pleural effusion. IMPRESSION: Moderate bilateral airspace opacities consistent with viral pneumonia. Radiographic follow-up to ensure resolution is recommended. ACT 112: Negative or not required by law. Electronically signed by: Jorge Ferguson M.D. 07/27/2021 3:50 PM ECG Data Attestation: I personally reviewed and interpreted this ECG as follows: Indication: + SOB/dyspnea Rate (beats per minute): 74 Rhythm: + normal sinus ECG Intervals/blocks: + Right Bundle branch block ECG Findings: + PVCs Comparison ECG Date: from (July 29, 2017) Change: the following changes noted (Right bundle branch block is new) MDM Narrative I did evaluate the patient as noted above. The patient is presenting with Covid symptoms and is currently living with family members who have been diagnosed with Covid. She is hypoxemic here and was placed on supplemental oxygen via nasal cannula with 4 L. IV access was established. I did treat her with Decadron [address] an order for continuous cardiac monitoring. The monitor showed normal sinus rhythm at a rate of 78 bpm. I did order and personally review the patient's 12-lead EKG as described above. She has a right bundle branch block. I did order and personally reviewed the images of the patient's chest x-ray as described above. She does appear to have multifocal pneumonia consistent with a viral process such as COVID-19. Urine analysis shows no signs of infection. I did order and review the patient's blood work as noted in the electronic medical record. CBC demonstrates a white count of 7 with some mild lymphopenia. Her hemoglobin is 11.5 platelet count is within normal limits. Electrolytes demonstrate a potassium of 2.8 likely from her diarrhea. She was given oral supplementation with K. Dur 40 mEq p.o. Renal function is preserved. Troponin is negative. C-reactive protein is elevated at 7.69. COVID-19 testing is positive. I did discuss case with the hospitalist and pillowcase sewer. She was hospitalized for further care and evaluation. Impression & Plan Hypoxemia, Multifocal pneumonia, Pneumonia due to 2019 novel coronavirus, Acute hypokalemia, Anemia Discharge Plan Visit Data Chief Complaint: Shortness of Breath/Dyspnea Stated Complaint: SOB ED Provider: Mat Jon Discharge Problem: Hypoxemia, Multifocal pneumonia, Pneumonia due to 2019 novel coronavirus, Acute hypokalemia, Anemia Patient Disposition: Being Evaluated by Hospitalist Forms Stand Alone Forms: My [facility] [place] Prescriptions Prescriptions: No Action azelastine 137 mcg (0.1 %) aerosol,spray 2 spray INTRANASAL BID Qty: 30 RF: 0 naproxen 500 mg tablet 500 mg PO BID PRN (Reason: Pain) Qty: 60 RF: 0 albuterol sulfate 2.5 mg /3 mL (0.083 %) solution for nebulization See Rx Instructions .ROUTE .COMPLEX Qty: 75 RF: 5 Incruse Ellipta 62.5 mcg/actuation blister with device 1 inh INHALATION DAILY Qty: 1 RF: 5 Hold Instructions: Home Medication placed on hold at Doctor's office multivitamin Tablet 1 tab PO HS RF: 0 sennosides [Senokot] 8.6 mg Tablet 17.2 mg PO HS RF: 0 cetirizine [Zyrtec] 10 mg Tablet 10 mg PO HS RF: 0 dibucaine 1 % Ointment 1 applic VA BID PRN (Reason: Rectal Discomfort) RF: 0 valacyclovir [Valtrex] 1 gram Tablet 2,000 mg PO DIRECTED PRN (Reason: Outbreak) RF: 0 amlodipine 10 mg Tablet 10 mg PO QAM RF: 0 docusate sodium 100 mg Capsule 100 mg PO BID RF: 0 aspirin 81 mg Tablet,Chewable 81 mg PO HS RF: 0 sodium chloride [[place] Nasal] 0.65 % Aerosol,[place] 1 spray INTRANASAL Q4H PRN (Reason: Dry Nasal Passages) RF: 0 omega 6-rtw-mfw-fish oil [Fish Oil] 1,000 mg (120 mg-180 mg) Capsule 1,000 mg PO QAM RF: 0 calcium carbonate-vitamin D3 [Calcium 600 with Vitamin D3] 600 mg(1,500mg) - 500 unit Capsule 1 tab PO QAM RF: 0 Preparation H 0.25-14-74.9 % Ointment 1 applic VA DIRECTED PRN (Reason: Hemorrhoids) RF: 0 tamsulosin 0.4 mg capsule 0.4 mg PO HS RF: 0 montelukast 10 mg tablet 10 mg PO HS RF: 0 potassium chloride 20 mEq tablet extended release 40 meq PO QAM RF: 0 prednisone 10 mg Tablet 10 mg PO UD RF: 0 atorvastatin 40 mg Tablet 40 mg PO DAILY RF: 0 doxycycline hyclate 100 mg capsule 100 mg PO BID RF: 0 fluticasone propion-salmeterol [Advair Diskus] 500-50 mcg/dose Blister With Device 1 inh INHALATION BID RF: 0 valsartan 160 mg Tablet 160 mg PO DAILY RF: 0 cholecalciferol (vitamin D3) [Vitamin D3] 25 mcg (1,000 unit) Capsule 25 mcg PO DAILY RF: 0 meclizine 12.5 mg tablet 25 mg PO TID PRN (Reason: Dizziness Or Vertigo) RF: 0 furosemide [Lasix] 20 mg tablet 20 mg PO QAM PRN (Reason: Fluid Retention) RF: 0 albuterol sulfate 90 mcg/actuation HFA aerosol inhaler 2 puff inhalation QID PRN (Reason: Shortness Of Breath) RF: 0 fluticasone propionate [Flonase Allergy Relief] 50 mcg/actuation spray,suspension 2 spray INTRANASAL DAILY RF: 0 Referrals Referrals: Arthur Mead III, CRNP [Primary Care Provider] -
[2021-07-27 17:14] LABS: Hematocrit (blood only) 35.7 % (37-47); Hemoglobin 11.5 g/dL (12.0-16.0); Immature Granulocytes # (auto) 0.01 K/uL (0.00-0.02); Immature Granulocytes % (auto) 0.1 %; Lymphocytes # (auto) 0.48 K/uL (1.2-3.4); Lymphocytes % (auto) 6.8 %; Mean Corpuscular Hemoglobin 29.6 pg (25-34); Mean Corpuscular Hgb Conc 32.2 g/dL (32-36); Mean Platelet Volume 9.6 fL (7.4-10.4); Monocytes # (auto) 0.47 K/uL (0.11-0.59); Monocytes % (auto) 6.7 %; Neutrophils % (auto) 86.4 %; Platelet Count 195 K/uL (130-400); RDW Coefficient of Variation 15.3 % (11.5-14.5); RDW Standard Deviation 52.1 fL (36.4-46.3); Red Blood Count 3.88 M/uL (4.2-5.4); White Blood Count 7.06 K/uL (4.8-10.8)
[2021-07-27 17:30] LABS: Partial Thromboplastin Time 26.2 Seconds (21.0-31.0); Prothrombin Time 10.3 Seconds (9.0-12.0)
[2021-07-27 17:30] LABS: Alanine Aminotransferase 45 (12-78); Albumin Level 2.7 gm/dl (3.4-5.0); BUN Creatinine Ratio 16.5 (10-20); Blood Urea Nitrogen 14 mg/dl (7-18); Calcium 8.4 mg/dl (8.5-10.1); Carbon Dioxide 24 mmol/L (21-32); Chloride 108 mmol/L (98-107); Creatinine Clr Calc Pharmacy 57.5 ml/min; Est GFR (African American) 74.5 ml/min; Est GFR (Non-African American) 64.3 ml/min; Glucose 125 mg/dl (70-99); Potassium 2.8 mmol/L (3.5-5.1); Sodium 139 mmol/L (136-145)
[2021-07-27 17:35] LABS: Albumin Globulin Ratio 0.7 (0.9-2); Alkaline Phosphatase 67 U/L (45-117); Aspartate Aminotransferase 34 U/L (15-37); Bilirubin,Total 0.9 mg/dl (0.2-1); C Reactive Protein 7.69 mg/dl (0-0.29); Globulin 3.7 gm/dl (2.5-4.0); NT Pro B Type Natriuretic Pept 355 pg/ml (0-1800); Total Protein 6.4 gm/dl (6.4-8.2); Troponin I < 0.015 ng/ml (0-0.045)
[2021-07-27] MEDS ORDERED: POTASSIUM CHLORIDE 10 MEQ TABCR PO STA (17:53)
[2021-07-27 17:59] LABS: Influenza A virus by PCR Negative (Neg); Influenza B virus by PCR Negative (Neg); RSV by PCR Negative (Neg)
[2021-07-27 18:24] LABS: Appearance Urine Clear (Clear); Bacteria Urine Automated Negative (Negative); Bilirubin Urine Negative (Negative); Blood Urine Negative (Negative); Cast Urine Automated 0 /lpf (0-5); Color Urine Yellow; Glucose Urine UA Negative (Negative); Ketones Urine Negative (Negative); Leukocyte Esterase Urine Negative (Negative); Nitrite Urine Negative (Negative); Protein Urine 1+ (Negative); RBC Urine Automated 0-4 /hpf (0-4); Specific Gravity Urine 1.016 (1.000-1.030); Urobilinogen Urine Negative (Negative)
--- NOTE | 2021-07-27 18:37 | History & Physical Report ---
Date of Service July 27, 2021 Assessment & Plan (1) Pneumonia due to 2019 novel coronavirus: Plan: First symptoms: July 14 First tested positive: July 27 Vaccinated: Yes, no booster Admission date: July 27 Admission O2 requirement: 5LPM O2 Admission CRP: 7.69 Prior treatments: prednisone 30mg 10 days, started 07/21, doxycycline 100mg PO BID 10 days Dexamethasone: 6mg IV BID started July 27, increased dose due to asthma component Remdesivir: Day of illness on admission therefore not given Tocilizumab/baricitinib: does not qualify on admission due to current O2 requirement Antibiotics: Procalcitonin negative, no indication of need VTE Prophylaxis: Lovenox 40mg SQ BID (increased dose due to morbid obesity) (2) Acute respiratory failure with hypoxia: Plan: Secondary to COVID-19 pneumonia as above Aim O2 sats > 90% (3) Acute hypokalemia: Plan: Missed her usual potassium chloride this morning. 40 meq given in the ER. Additional 40 meq now. Monitor for arrhythmia on telemetry Repeat BMP in AM (4) Asthma: Plan: Subjective improvement with albuterol inhaler therefore will keep this going Q4HWA Increase dexamethasone dose to 6mg IV BID (5) Benign essential hypertension: Plan: Continue amlodipine 10mg PO daily and valsartan 160mg PO daily (6) Bilateral edema of lower extremity: Plan: No history of CHF but she does use Lasix PRN. Reports at baseline. Will likely need Lasix pending I&Os to run a negative balance once potassium improved (7) Anemia: Plan: Noted. Mild. Monitor with CBC in AM (8) HLD (hyperlipidemia): Plan: Continue atorvastatin 40mg PO daily Plan: VTE Prophylaxis - Lovenox 40mg SQ BID Diet - Low sodium Disposition - COVID isolation, admit to med/tele (due to hypokalemia) Admission and Anticipated Discharge Date Admission Date: July 27, 2021 History of Present Illness Chief Complaint: COVID-19 symptoms Primary Care Provider: Arthur Mead, III, SCAR Alesia Lopez is a 76 year old female who presents to the ER with shortness of breath and fatigue. She lives downstairs from her son and the rest of his family who all have COVID currently. Initial symptoms started 2 weeks ago. She is vaccinated against COVID-19 in but not had the booster vaccine. She reports increasing shortness of breath, non-productive cough, fatigue and generalized weakness. She has asthma and doesn't report having some relief from her albuterol inhaler. She reports good appetite (especially on recent prednisone). Her taste and smell have also now come back. She denies any chest, abdominal pain or diarrhea. She has not taken her usual medications this morning. She was started on treatment for COPD/Pneumonia with prednisone and doxycycline by her PCP. No history of PEs or DVTs. In the ER she is requiring 5LPM O2 to maintain O2 sats > 90%. She received dexamethasone 6mg IV for COVID-19 pneumonia. She was referred to medicine for admission and ongoing management of this. Allergies Allergy/AdvReac Type Severity Reaction Status Date / Time Quinolones Allergy Intermediate ITCHING, Verified 07/27/21 17:12 HIVES levofloxacin Allergy Mild HIVES Verified 07/27/21 17:12 house dust AdvReac Mild SNEEZING Verified 07/28/21 08:54 WITH DUST MITES Home Medications Medication Instructions Recorded Confirmed Type amlodipine 10 mg tablet 10 mg PO QAM 07/13/18 07/27/21 History aspirin 81 mg chewable tablet 81 mg PO HS 07/13/18 07/27/21 History calcium carbonate 600 mg-vitamin 1 tab PO QAM 07/13/18 07/27/21 History D3 12.5 mcg (500 unit) capsule (Calcium 600 with Vitamin D3) cetirizine 10 mg tablet (Zyrtec) 10 mg PO HS 07/13/18 07/27/21 History dibucaine 1 % rectal ointment 1 applic DC BID PRN 07/13/18 07/27/21 History docusate sodium 100 mg capsule 100 mg PO BID 07/13/18 07/27/21 History multivitamin 1 tab PO HS 07/13/18 07/27/21 History omega 0-qrj-edx-fish oil 1,000 mg 1,000 mg PO QAM 07/13/18 07/27/21 History (120 mg-180 mg) capsule (Fish Oil) phenylephrine 0.25 %-mineral oil 1 applic DC DIRECTED PRN 07/13/18 07/27/21 History 14 %-petrolatm 74.9 % rectal ointment (Preparation H) sennosides 8.6 mg tablet (Senokot) 17.2 mg PO HS 07/13/18 07/27/21 History sodium chloride 0.65 % nasal spray 1 spray INTRANASAL Q4H PRN 07/13/18 07/27/21 History aerosol (Gallant Nasal) valacyclovir 1 gram tablet 2,000 mg PO DIRECTED PRN 07/13/18 07/27/21 History (Valtrex) azelastine 137 mcg (0.1 %) nasal 2 spray INTRANASAL BID #30 ml 09/07/19 07/27/21 Rx spray aerosol naproxen 500 mg tablet 500 mg PO BID PRN #60 tab 12/01/19 07/27/21 Rx albuterol sulfate See Rx Instructions .ROUTE 08/04/20 07/27/21 Rx .COMPLEX #75 unspecified umeclidinium 62.5 mcg/actuation 1 inh INHALATION DAILY #1 inhaler 11/08/20 07/27/21 Rx blister powder for inhalation (Incruse Ellipta) montelukast 10 mg tablet 10 mg PO HS 05/10/21 07/27/21 History potassium chloride 20 mEq 40 meq PO QAM 05/10/21 07/27/21 History tablet,extended release prednisone 10 mg tablet 10 mg PO UD 05/10/21 07/27/21 History tamsulosin 0.4 mg capsule 0.4 mg PO HS 05/10/21 07/27/21 History albuterol sulfate 90 mcg/actuation 2 puff INHALATION QID PRN 07/27/21 07/27/21 History aerosol inhaler atorvastatin 40 mg tablet 40 mg PO DAILY 07/27/21 07/27/21 History cholecalciferol (vitamin D3) 25 25 mcg PO DAILY 07/27/21 07/27/21 History mcg (1,000 unit) capsule (Vitamin D3) doxycycline hyclate 100 mg capsule 100 mg PO BID 07/27/21 07/27/21 History fluticasone 500 mcg-salmeterol 50 1 inh INHALATION BID 07/27/21 07/27/21 History mcg/dose blistr powdr for inhalation (Advair Diskus) fluticasone propionate 50 2 spray INTRANASAL DAILY 07/27/21 07/27/21 History mcg/actuation nasal spray,suspension (Flonase Allergy Relief) furosemide 20 mg tablet (Lasix) 20 mg PO QAM PRN 07/27/21 07/27/21 History meclizine 12.5 mg tablet 25 mg PO TID PRN 07/27/21 07/27/21 History valsartan 160 mg tablet 160 mg PO DAILY 07/27/21 07/27/21 History Past Med/Surg History Medical History Asthma inhalers daily/prn, nebulizer prn Chronic sinusitis Difficult airway for intubation pt states she was told this here at [facility] "they said I was difficult to intubate"--pt unable to provide any further details Diverticulitis History of ovarian cancer hysterectomy History of rheumatic fever as a child History of skin cancer on nose HLD (hyperlipidemia) Hypertension Morbid obesity with BMI of 45.0-49.9, adult Small bowel obstruction Surgical History History of colonoscopy History of nasal polypectomy History of total hysterectomy with bilateral salpingo-oophorectomy (BSO) S/P appendectomy S/P cataract surgery bilt S/P section x3 S/P nerve repair from left elbow to left little finger S/P wisdom tooth extraction Family History Mother Ovarian cancer Other Family history non-contributory No family history of adverse response to anesthesia Denies family history of Prostate cancer Myocardial infarction Breast cancer Colorectal cancer Social History Smoking Status: Never smoker Second Hand Exposure: No; Hx Alcohol Use: No Hx Substance Use: No Preferred Language: Mauritian Communication Ability: Effective Visual Impairment: No Limitations Hearing Ability: Normal 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 Beliefs That Will Affect Care: None marital status: / Current Living Situation: Family Current Living Situation Comment: lives with son current occupational status: retired Other Information That Helps Us Care for You: No Feels Safe at Home: Yes Childhood Exposure to Second-Hand Smoke: Yes Dental Care, Regularly: Yes Physical Activity Frequency: 5-6 Times per Week Seatbelt Use: always Sunscreen Use: Yes Assistive Devices: Glasses and Oxygen - Continuous Review of Systems Review of Systems: All systems reviewed & are unremarkable except as noted in HPI & below Physical Exam Constitutional: well developed, well nourished and + acute distress (respiratory) Eyes: PERRL, conjunctivae normal, anicteric sclerae ENMT: Mouth: oral mucous membranes not dry Neck: trachea midline, no thyromegaly Respiratory: + respiratory distress, + retractions and + uses accessory muscles Auscultation: + crackles (coarse b/l posteriorly) and + wheezes (mild right anterior end expiratory); no diminished lung sounds Cardiovascular: Rate/Rhythm: regular rate and regular rhythm Extremities: normal capillary refill and + pedal edema (1+ to knees, equal b/l); no calf tenderness Gastrointestinal (Abdomen): normal bowel sounds, soft, nontender, no hepatosplenomegaly Musculoskeletal: no cyanosis or clubbing, extremities motor strength 5/5 Skin: no rashes, warm and dry Neurologic: moves all extremities and awake; not confused Psychiatric: A+Ox3, euthymic affect Results & Data Results & Data ([facility]) Vital Signs (Past 12 Hours) Vital Signs Temp Pulse Pulse Resp BP BP Pulse Ox 07/27/21 18:00 74 22 152/73 H 94 07/27/21 17:05 95 07/27/21 16:29 76 25 H 143/83 H 93 07/27/21 14:51 36.8 C 80 18 140/84 89 L Laboratory Results Abnormal lab results 07/27/21 07/27/21 07/27/21 Range/Units 17:00 17:00 17:00 RBC 3.88 L (4.2-5.4) M/uL Hgb 11.5 L (12.0-16.0) g/dL Hct 35.7 L (37-47) % RDW Std Deviation 52.1 H (36.4-46.3) fL RDW Coeff of [place]el[place] 15.3 H (11.5-14.5) % Lymph # (Auto) 0.48 L (1.2-3.4) K/uL Potassium 2.8 L (3.5-5.1) mmol/L Chloride 108 H (98-107) mmol/L BUN/Creatinine Ratio (10-20) Glucose 125 H (70-99) mg/dl Calcium 8.4 L (8.5-10.1) mg/dl C-Reactive Protein 7.69 H (0-0.29) mg/dl Albumin 2.7 L (3.4-5.0) gm/dl Albumin/Globulin Ratio 0.7 L (0.9-2) Urine Protein (Negative) U Epithel Cells (Auto) (0-5) /lpf SARS-CoV-2 (PCR) POSITIVE A* (Negative) 07/27/21 07/28/21 07/28/21 Range/Units 18:10 06:34 06:34 RBC 4.10 L (4.2-5.4) M/uL Hgb (12.0-16.0) g/dL Hct (37-47) % RDW Std Deviation 53.4 H (36.4-46.3) fL RDW Coeff of [place]el[place] 15.4 H (11.5-14.5) % Lymph # (Auto) 0.33 L (1.2-3.4) K/uL Potassium (3.5-5.1) mmol/L Chloride 113 H (98-107) mmol/L BUN/Creatinine Ratio 20.7 H (10-20) Glucose 143 H (70-99) mg/dl Calcium (8.5-10.1) mg/dl C-Reactive Protein (0-0.29) mg/dl Albumin 2.7 L (3.4-5.0) gm/dl Albumin/Globulin Ratio 0.7 L (0.9-2) Urine Protein 1+ H (Negative) U Epithel Cells (Auto) 10-20 H (0-5) /lpf SARS-CoV-2 (PCR) (Negative) Diagnostic Findings XR chest 2V PA/lateral CLINICAL HISTORY: Shortness of breath. COMPARISON STUDY: Chest radiograph July 29, 2017. FINDINGS: Lung volumes are normal. Note is made of mild cardiomegaly without evidence for pulmonary edema. Moderate bilateral mid and lower lung airspace opacities are present. There is no pneumothorax or pleural effusion. IMPRESSION: Moderate bilateral airspace opacities consistent with viral pneumonia. Radiographic follow-up to ensure resolution is recommended. Medications Administered ER Medications Given: Dexamethasone 6mg IV Potassium chloride 40 meq PO ECG Indication: SOB/dyspnea Rate (beats per minute): 74 Rhythm: normal sinus Findings: + PVC (occasional) and + RBBB Comparison ECG Date: from (Jul 29, 2017) Change: the following changes noted (RBBB and PVCs are new) Code Status & VTE Plan Code Status Ok for intubation and ventilation but no CPR in the setting of cardiac arrest VTE Prophylaxis Plan VTE Prophylaxis will be ordered: Yes PG Care Time/CCT Total # of Minutes Spent Total Time Spent with Patient: Total time spent is greater than 50% in coordination of care (as documented) at patient's floor/unit and/or counseling patient: Coding Level of Care Code 92379 Initial Inpt Care Lvl 3 Diagnoses Pneumonia due to 2019 novel coronavirus U07.1; J12.82 Acute respiratory failure with hypoxia J96.01 Acute hypokalemia E87.6 Asthma J45.909 Benign essential hypertension I10 Bilateral edema of lower extremity R60.0 Anemia D64.9 Anemia type: unspecified type HLD (hyperlipidemia) E78.5 (1) Anemia Anemia type: unspecified type Qualified Code(s): D64.9 - Anemia, unspecified
[2021-07-27] MEDS ORDERED: ALBUTEROL HFA 8 GM INHALER INH STA (18:53)
[2021-07-27 19:43] LABS: SARS CoV2 RNA(COVID-19) InHosp POSITIVE (Negative)
[2021-07-27] MEDS ORDERED: ONDANSETRON INJ 2 MG/ML 2 ML VIAL IV PRN (22:47)
[2021-07-27] MEDS ORDERED: POTASSIUM CHLORIDE CRTAB 20 MEQ TABCR PO ONE (22:47)
[2021-07-27] MEDS ORDERED: ACETAMINOPHEN 325 MG TAB PO PRN (22:47)
[2021-07-27] MEDS ORDERED: POLYETHYLENE (MIRALAX) 17 GM PACK PO PRN (22:47)
[2021-07-27] MEDS ORDERED: ALUMINUM/MAGNESIUM SUSP 30 ML UDC PO PRN (22:47)
[2021-07-27] MEDS: ALBUTEROL HFA 8 GM INHALER INH SCH (23:53)
[2021-07-28] MEDS: CETIRIZINE HCL 10 MG TABLET PO SCH ×2 (00:16→21:05)
[2021-07-28] MEDS: dexAMETHasone 6 MG in SYRINGE 0 ML IV SCH ×3 (00:17→22:11)
[2021-07-28] MEDS: MONTELUKAST SODIUM 10 MG TABLET PO SCH ×2 (00:17→21:03)
[2021-07-28] MEDS: SENNA 8.6 MG TAB PO SCH ×2 (00:18→21:02)
[2021-07-28] MEDS: TAMSULOSIN HCL 0.4 MG CAP PO SCH ×2 (00:18→21:02)
[2021-07-28] MEDS: DOCUSATE SODIUM 100 MG CAP PO SCH ×3 (00:24→21:04)
[2021-07-28] MEDS: ASPIRIN 81 MG ECTAB PO SCH ×2 (00:56→21:05)
[2021-07-28] MEDS: AZELASTINE HCL 0.1% NASAL 200 SPRAYS/27,400 MCG BTL NAE SCH ×3 (00:56→21:05)
[2021-07-28 06:52] LABS: Hematocrit (blood only) 38.4 % (37-47); Hemoglobin 12.4 g/dL (12.0-16.0); Immature Granulocytes # (auto) 0.02 K/uL (0.00-0.02); Immature Granulocytes % (auto) 0.4 %; Lymphocytes # (auto) 0.33 K/uL (1.2-3.4); Lymphocytes % (auto) 6.5 %; Mean Corpuscular Hemoglobin 30.2 pg (25-34); Mean Corpuscular Hgb Conc 32.3 g/dL (32-36); Mean Corpuscular Volume 93.7 fL (80-100); Mean Platelet Volume 9.3 fL (7.4-10.4); Monocytes # (auto) 0.16 K/uL (0.11-0.59); Monocytes % (auto) 3.1 %; Platelet Count 211 K/uL (130-400); RDW Coefficient of Variation 15.4 % (11.5-14.5); RDW Standard Deviation 53.4 fL (36.4-46.3); White Blood Count 5.11 K/uL (4.8-10.8)
[2021-07-28 07:39] LABS: Albumin Globulin Ratio 0.7 (0.9-2); Albumin Level 2.7 gm/dl (3.4-5.0); BUN Creatinine Ratio 20.7 (10-20); Calcium 8.8 mg/dl (8.5-10.1); Creatinine Clr Calc Pharmacy 62.7 ml/min; Est GFR (African American) 78.8 ml/min; Globulin 3.8 gm/dl (2.5-4.0); Potassium 4.1 mmol/L (3.5-5.1); Total Protein 6.5 gm/dl (6.4-8.2)
[2021-07-28] MEDS: ALBUTEROL HFA 8 GM INHALER INH SCH ×4 (08:12→20:06)
[2021-07-28 08:15] LABS: Bilirubin,Total 0.6 mg/dl (0.2-1)
[2021-07-28] MEDS: ENOXAPARIN INJ 40 MG/0.4 ML SYR SQ SCH ×2 (08:34→21:03)
[2021-07-28] MEDS: FLUTICASONE PROPIONATE NA SPR 16 GM BTL NAE SCH (08:35)
[2021-07-28] MEDS: amLODIPine BESYLATE 5 MG TAB PO SCH (08:36)
[2021-07-28] MEDS: CALCIUM 600MG + VIT D 400 IU TAB PO SCH (08:38)
[2021-07-28] MEDS: ATORVASTATIN 40 MG TAB PO SCH (08:38)
[2021-07-28] MEDS: VALSARTAN 80 MG TAB PO SCH (08:38)
[2021-07-28] MEDS: CHOLECALCIFEROL 1,000 UNITS 25 MCG TAB PO SCH (08:38)
[2021-07-28] MEDS: FLUTICASONE/VILANTEROL 200/25MCG 14 PUFFS/INHALER INH SCH (08:39)
[2021-07-28] MEDS ORDERED: Nursing to Pharmacy Communication SCH (08:45)
[2021-07-28] MEDS: POTASSIUM CHLORIDE CRTAB 20 MEQ TABCR PO SCH (08:54)
[2021-07-28] MEDS ORDERED: amLODIPine BESYLATE 5 MG TAB PO SCH (09:00)
--- NOTE | 2021-07-28 10:21 | Electrocardiogram Report ---
Test Reason : Blood Pressure : / mmHG Vent. Rate : 074 BPM Atrial Rate : 074 BPM P-R Int : 166 ms QRS Dur : 144 ms QT Int : 410 ms P-R-T Axes : 024 -12 -21 degrees QTc Int : 455 ms Sinus rhythm with occasional Premature ventricular complexes Right bundle branch block Abnormal ECG When compared with ECG of 29-JUL-2017 13:01, Premature ventricular complexes are now Present Right bundle branch block is now Present Confirmed by Raymon Mercer ([id number]) on 07/28/2021 10:20:50 AM Referred By: REFERRED SELF Confirmed By:Raymon Mercer
[2021-07-28] MEDS: UMECLIDINIUM BROMIDE 62.5MCG/BLISTER 7 PUFFS/INHALER INH SCH (13:59)
--- NOTE | 2021-07-28 19:14 | Hospitalist Progress Note ---
Date of Service July 28, 2021 Assessment & Plan (1) Pneumonia due to 2019 novel coronavirus: Plan: First symptoms: July 14 First tested positive: July 27 Vaccinated: Yes, no booster Admission date: July 27 Admission O2 requirement: 5LPM O2 Admission CRP: 7.69 Dexamethasone: 6mg IV BID started July 27, thus day #2 (significant wheezing from asthma) Remdesivir: deferred as patient is 10+ days out from the start of illness Tocilizumab/baricitinib: thus far does not meet candidacy Antibiotics deferred - no evidence of complicating bacterial infection Add flutter valve Add incentive spirometry Add mucinex BID She cannot prone but will try to lay on side Cont bronchodilators (2) Acute respiratory failure with hypoxia: Plan: 2nd COVID-19 pneumonia see #1 above (3) Acute hypokalemia: Plan: repleted resolved (4) Asthma: Plan: with exacerbation - 2nd to COVID-19 infection. Continue dexamethasone to 6mg IV BID. Continue bronchodilators and home inhalers. Pulmonary toilet. (5) Benign essential hypertension: Plan: Continue amlodipine 10mg PO daily and valsartan 160mg PO daily (6) Bilateral edema of lower extremity: Plan: Pt reports the amount that is present today is at baseline Monitor fluid status day to day (7) Anemia: (8) HLD (hyperlipidemia): Plan: Continue atorvastatin 40mg PO daily (9) Morbid obesity with BMI of 45.0-49.9, adult: Plan: BMI 45 (10) DVT prophylaxis: Plan: lovenox 40mg BID Plan: son updated by phone this evening Admission and Anticipated Discharge Date Admission Date: July 27, 2021 Subjective patient sitting at side of the bed eating her meal feels "pretty good" today coughing, wheezing, mild sputum production no dyspnea at rest but having dyspnea w/ exertion eating well some fatigue Review of Systems Review of Systems: gen - no fevers or chills CV - mild chest tightness but no pain pulm - no hemoptysis GI - some diarrhea, no vomiting Physical Exam Physical Exam: gen - morbidly obese, NAD, looks good mouth - MMM neck - no JVD heart - RRR, s1 s2, no murmur lungs - diffuse wheezing b/l, mild rales bases abd - soft NT ext - 1+ edema, pulses 2+ b/l Results & Data Results & Data ([facility]) Vital Signs (Past 12 Hours) Vital Signs Temp Pulse Pulse Resp BP BP Pulse Ox 07/28/21 15:06 36.5 C 67 22 132/83 90 07/28/21 14:30 63 07/28/21 11:50 36.4 C L 68 22 136/70 91 07/28/21 11:08 65 18 94 07/28/21 08:15 60 07/28/21 08:14 68 20 92 07/28/21 08:05 36.5 C 59 L 22 141/70 H 95 Laboratory Results Laboratory Results - last 24 hr 07/27/21 07/28/21 07/28/21 17:00 06:34 06:34 WBC 5.11 RBC 4.10 L Hgb 12.4 Hct 38.4 MCV 93.7 MCH 30.2 MCHC 32.3 RDW Std Deviation 53.4 H RDW Coeff of Adelso 15.4 H Plt Count 211 MPV 9.3 Immature Gran % (Auto) 0.4 Neut % (Auto) 90.0 Lymph % (Auto) 6.5 [place] % (Auto) 3.1 Eos % (Auto) 0.0 Baso % (Auto) 0.0 Neut # (Auto) 4.60 Lymph # (Auto) 0.33 L [place] # (Auto) 0.16 Eos # (Auto) 0.00 Baso # (Auto) 0.00 Immature Gran # (Auto) 0.02 Sodium 141 Potassium 4.1 D Chloride 113 H Carbon Dioxide 24 Anion Gap 5.0 BUN 17 Creatinine 0.83 Est Cr Clr Drug Dosing 62.7 Est GFR ( Amer) 78.8 Est GFR (Non-Af Amer) 68.0 BUN/Creatinine Ratio 20.7 H Glucose 143 H Calcium 8.8 Total Bilirubin 0.6 AST 29 ALT 41 Alkaline Phosphatase 68 Total Protein 6.5 Albumin 2.7 L Globulin 3.8 Albumin/Globulin Ratio 0.7 L SARS-CoV-2 (PCR) POSITIVE A* Influenza Type A (PCR) Negative Influenza Type B (PCR) Negative RSV (RT-PCR) Negative PG Care Time/CCT Total # of Minutes Spent Total Time Spent with Patient: Total time spent is greater than 50% in coordination of care (as documented) at patient's floor/unit and/or counseling patient: Coding Level of Care Code 58328 Subseq Hosp Care Lvl 3 Diagnoses Pneumonia due to 2019 novel coronavirus U07.1; J12.82 Acute respiratory failure with hypoxia J96.01 Acute hypokalemia E87.6 Asthma J45.909 Benign essential hypertension I10 Bilateral edema of lower extremity R60.0 Anemia D64.9 Anemia type: unspecified type HLD (hyperlipidemia) E78.5 DVT prophylaxis Z29.9 Morbid obesity with BMI of 45.0-49.9, adult E66.01; Z68.42 (1) Anemia Anemia type: unspecified type Qualified Code(s): D64.9 - Anemia, unspecified
[2021-07-28] MEDS: guaiFENesin 600 MG TABCR PO SCH (21:03)
[2021-07-29] MEDS: ALBUTEROL HFA 8 GM INHALER INH SCH ×4 (08:14→20:20)
[2021-07-29] MEDS: FLUTICASONE/VILANTEROL 200/25MCG 14 PUFFS/INHALER INH SCH (08:47)
[2021-07-29] MEDS: FLUTICASONE PROPIONATE NA SPR 16 GM BTL NAE SCH (08:47)
[2021-07-29] MEDS: AZELASTINE HCL 0.1% NASAL 200 SPRAYS/27,400 MCG BTL NAE SCH ×2 (08:47→21:56)
[2021-07-29] MEDS: POTASSIUM CHLORIDE CRTAB 20 MEQ TABCR PO SCH (08:48)
[2021-07-29] MEDS: CHOLECALCIFEROL 1,000 UNITS 25 MCG TAB PO SCH (08:48)
[2021-07-29] MEDS: guaiFENesin 600 MG TABCR PO SCH ×2 (08:48→21:54)
[2021-07-29] MEDS: VALSARTAN 80 MG TAB PO SCH (08:48)
[2021-07-29] MEDS: ENOXAPARIN INJ 40 MG/0.4 ML SYR SQ SCH ×2 (08:49→21:56)
[2021-07-29] MEDS: DOCUSATE SODIUM 100 MG CAP PO SCH ×2 (08:49→21:54)
[2021-07-29] MEDS: CALCIUM 600MG + VIT D 400 IU TAB PO SCH (08:49)
[2021-07-29] MEDS: ATORVASTATIN 40 MG TAB PO SCH (08:49)
[2021-07-29] MEDS: dexAMETHasone 6 MG in SYRINGE 0 ML IV SCH ×2 (08:49→21:55)
[2021-07-29] MEDS: amLODIPine BESYLATE 5 MG TAB PO SCH (08:49)
[2021-07-29] MEDS: UMECLIDINIUM BROMIDE 62.5MCG/BLISTER 7 PUFFS/INHALER INH SCH (11:20)
[2021-07-29] MEDS ORDERED: ALBUT/IPRATROP 3MG/0.5MG NEB 3 ML VIAL NEB STA (15:19)
[2021-07-29] MEDS ORDERED: FUROSEMIDE INJ 20 MG/2 ML VIAL IV STA (15:19)
--- NOTE | 2021-07-29 16:45 | XRay Report ---
XR chest 1V portable CLINICAL HISTORY: covid pneumonia, worsening hypoxia TECHNIQUE: Single frontal radiograph of the chest was obtained. Comparison: Comparison is made to chest one view 07/27/2021 FINDINGS: No lines and tubes are seen. The cardiomediastinal silhouette is stable. Bilateral lower lung predomi nant airspace opacities are seen. No evidence of pleural effusion or pneumothorax. IMPRESSION: Similar appearance of bilateral lower lobe predominant airspace opacities compatible with history of Covid pneumonia. ACT 112: Negative or not required by law. Electronically signed by: Lucius Rm M.D. 07/29/2021 4:44 PM
--- NOTE | 2021-07-29 20:29 | Hospitalist Progress Note ---
Date of Service July 29, 2021 Assessment & Plan (1) Pneumonia due to 2019 novel coronavirus: Plan: Worse today. CXR with worsening infiltrates - suspect mostly her COVID pneumonia; can't exclude element of pulmonary edema. Had been on 5 L NC O2 at admission - now increasing and was at 10L upon my exit from her room. At risk of ongoing worsening disease and need for HFNC or CPAP. Dexamethasone: 6mg IV BID started July 27, thus day #3 (significant wheez ing from asthma) Remdesivir: deferred as patient is 10+ days out from the start of illness Tocilizumab/baricitinib: recheck CRP in am; if >7.5 consider baricitinib given her crescendoing O2 requirements. Antibiotics deferred - no evidence of complicating bacterial infection, but check procal in am along with crp. Cont flutter valve, incentive spirometry, mucinex, schedule albuterol. Gave additional duoneb this afternoon. Lasix 20mg IV x 1 now. Cont side positioning; cannot prone. (2) Acute respiratory failure with hypoxia: Plan: worse 2nd COVID-19 pneumonia +/- pulm edema see #1 above (3) Acute hypokalemia: Plan: repleted resolved (4) Asthma: Plan: with exacerbation - 2nd to COVID-19 infection. Continue dexamethasone to 6mg IV BID. Continue bronchodilators and home inhalers. Pulmonary toilet. See above. (5) Benign essential hypertension: Plan: Continue amlodipine 10mg PO daily and valsartan 160mg PO daily (6) Bilateral edema of lower extremity: Plan: lasix 20mg IV x 1 (7) Anemia: Plan: recheck cbc am (8) HLD (hyperlipidemia): Plan: Continue atorvastatin 40mg PO daily (9) Morbid obesity with BMI of 45.0-49.9, adult: Plan: BMI 45 (10) DVT prophylaxis: Plan: lovenox 40mg BID Plan: son updated by phone yesterday evening left message for son colby Admission and Anticipated Discharge Date Admission Date: July 27, 2021 Subjective patient feeling worse today more dyspneic more cough wheezing unchanged increasing o2 requirements during the day today during the visit her O2 sats were 80-85% on 7-8L NC I increased the O2 to 9L with no response changed the NC to oxymask and increased to 10 L -- sats finally reached 90/91% she was visibly dyspneic during the visit Review of Systems Review of Systems: gen - no fevers, no chills; weak, fatigue; appetite wnl CV - orthopnea - but states she sleeps on 2-3 pillows at home chronically pulm - cough, congestion; mild pink sputum today; dyspnea GI - no N/V or pain Physical Exam Physical Exam: gen - morbidly obese, dyspneic, tachypneic mouth - MMM neck - no JVD heart - RRR, s1 s2, no murmur lungs - diffuse wheezing b/l, mild rales bases, tachypneic - worse today abd - soft NT ND BS+ ext - <1+ edema, pulses 2+ b/l psych - a/o x 3 Results & Data Results & Data ([facility]) Vital Signs (Past 12 Hours) Vital Signs Temp Pulse Resp BP Pulse Ox 07/29/21 20:00 70 22 95 07/29/21 15:38 69 26 H 91 07/29/21 15:02 36.4 C L 70 24 143/67 H 07/29/21 11:00 36.5 C 66 21 136/77 90 Diagnostic Findings Chest X-Ray 07/29/21 15:19 XR chest 1V portable CLINICAL HISTORY: covid pneumonia, worsening hypoxia TECHNIQUE: Single frontal radiograph of the chest was obtained. Comparison: Comparison is made to chest one view 07/27/2021 FINDINGS: No lines and tubes are seen. The cardiomediastinal silhouette is stable. Bilateral lower lung predominant airspace opacities are seen. No evidence of pleural effusion or pneumothorax. IMPRESSION: Similar appearance of bilateral lower lobe predominant airspace opacities compatible with history of Covid pneumonia. ACT 112: Negative or not required by law. Electronically signed by: Lucius Rm M.D. 07/29/2021 4:44 PM PG Care Time/CCT Total # of Minutes Spent Total Time Spent with Patient: Total time spent is greater than 50% in coordination of care (as documented) at patient's floor/unit and/or counseling patient: Coding Level of Care Code 30941 Subseq Hosp Care Lvl 3 Diagnoses Pneumonia due to 2019 novel coronavirus U07.1; J12.82 Acute respiratory failure with hypoxia J96.01 Acute hypokalemia E87.6 Asthma J45.909 Benign essential hypertension I10 Bilateral edema of lower extremity R60.0 Anemia D64.9 Anemia type: unspecified type HLD (hyperlipidemia) E78.5 Morbid obesity with BMI of 45.0-49.9, adult E66.01; Z68.42 DVT prophylaxis Z29.9 (1) Anemia Anemia type: unspecified type Qualified Code(s): D64.9 - Anemia, unspecified
[2021-07-29] MEDS: CETIRIZINE HCL 10 MG TABLET PO SCH (21:52)
[2021-07-29] MEDS: SENNA 8.6 MG TAB PO SCH (21:53)
[2021-07-29] MEDS: TAMSULOSIN HCL 0.4 MG CAP PO SCH (21:53)
[2021-07-29] MEDS: MONTELUKAST SODIUM 10 MG TABLET PO SCH (21:54)
[2021-07-29] MEDS: ASPIRIN 81 MG ECTAB PO SCH (21:55)
[2021-07-30] MEDS ORDERED: MELATONIN 3 MG TAB PO PRN (01:54)
[2021-07-30] MEDS: ALBUTEROL HFA 8 GM INHALER INH SCH ×4 (08:10→19:35)
[2021-07-30] MEDS: AZELASTINE HCL 0.1% NASAL 200 SPRAYS/27,400 MCG BTL NAE SCH ×2 (09:14→20:16)
[2021-07-30] MEDS: FLUTICASONE PROPIONATE NA SPR 16 GM BTL NAE SCH (09:14)
[2021-07-30] MEDS: dexAMETHasone 6 MG in SYRINGE 0 ML IV SCH ×2 (09:14→20:16)
[2021-07-30] MEDS: guaiFENesin 600 MG TABCR PO SCH ×2 (09:15→20:15)
[2021-07-30] MEDS: FLUTICASONE/VILANTEROL 200/25MCG 14 PUFFS/INHALER INH SCH (09:15)
[2021-07-30] MEDS: amLODIPine BESYLATE 5 MG TAB PO SCH (09:15)
[2021-07-30] MEDS: VALSARTAN 80 MG TAB PO SCH (09:15)
[2021-07-30] MEDS: DOCUSATE SODIUM 100 MG CAP PO SCH ×2 (09:15→20:15)
[2021-07-30] MEDS: CALCIUM 600MG + VIT D 400 IU TAB PO SCH (09:16)
[2021-07-30] MEDS: CHOLECALCIFEROL 1,000 UNITS 25 MCG TAB PO SCH (09:16)
[2021-07-30] MEDS: ATORVASTATIN 40 MG TAB PO SCH (09:16)
[2021-07-30] MEDS: POTASSIUM CHLORIDE CRTAB 20 MEQ TABCR PO SCH (09:16)
[2021-07-30] MEDS: ENOXAPARIN INJ 40 MG/0.4 ML SYR SQ SCH ×2 (09:17→20:15)
[2021-07-30 10:17] LABS: Basophils # (auto) 0.01 K/uL (0-0.2); Basophils % (auto) 0.1 %; Hematocrit (blood only) 40.2 % (37-47); Hemoglobin 12.8 g/dL (12.0-16.0); Immature Granulocytes # (auto) 0.09 K/uL (0.00-0.02); Lymphocytes # (auto) 0.81 K/uL (1.2-3.4); Lymphocytes % (auto) 8.8 %; Mean Corpuscular Hgb Conc 31.8 g/dL (32-36); Mean Corpuscular Volume 94.1 fL (80-100); Mean Platelet Volume 9.4 fL (7.4-10.4); Monocytes # (auto) 0.21 K/uL (0.11-0.59); Monocytes % (auto) 2.3 %; Neutrophils % (auto) 87.8 %; Platelet Count 327 K/uL (130-400); RDW Coefficient of Variation 15.2 % (11.5-14.5); RDW Standard Deviation 52.7 fL (36.4-46.3); Red Blood Count 4.27 M/uL (4.2-5.4); White Blood Count 9.22 K/uL (4.8-10.8)
[2021-07-30 10:43] LABS: BUN Creatinine Ratio 29.1 (10-20); C Reactive Protein 2.57 mg/dl (0-0.29); Calcium 8.8 mg/dl (8.5-10.1); Est GFR (African American) 54.3 ml/min; Est GFR (Non-African American) 46.8 ml/min; Magnesium 2.3 mg/dl (1.8-2.4); Potassium 3.8 mmol/L (3.5-5.1)
[2021-07-30] MEDS ORDERED: POTASSIUM CHLORIDE CRTAB 20 MEQ TABCR PO STA (10:50)
[2021-07-30] MEDS ORDERED: FUROSEMIDE 20 MG TAB PO ONE (11:00)
[2021-07-30] MEDS: UMECLIDINIUM BROMIDE 62.5MCG/BLISTER 7 PUFFS/INHALER INH SCH (12:21)
--- NOTE | 2021-07-30 18:52 | Hospitalist Progress Note ---
Date of Service July 30, 2021 Assessment & Plan (1) Pneumonia due to 2019 novel coronavirus: Plan: Stable today, slightly better than yesterday, with O2 requirements about the same over last 24 hours. Dexamethasone: 6mg IV BID started July 27, thus day #4. Remdesivir: deferred as patient is 10+ days out from the start of illness Tocilizumab/baricitinib: despite increasing O2 requirements she is not a candidate as CRP today is <7.5. Antibiotics deferred - no evidence of complicating bacterial infection, procal also negative. Cont flutter valve, incentive spirometry, mucinex, scheduled albuterol. Cont gentle diuresis, keep I/O balance negative. Cont side positioning; cannot prone. (2) Acute respiratory failure with hypoxia: Plan: 2nd COVID-19 pneumonia +/- pulm edema see #1 above (3) Acute hypokalemia: Plan: repleted resolved (4) Asthma: Plan: with exacerbation - 2nd to COVID-19 infection. Continue dexamethasone to 6mg IV BID (higher dose than usual due to asthma exacerbation). Continue bronchodilators and home inhalers. Pulmonary toilet. See above. (5) Benign essential hypertension: Plan: Continue amlodipine 10mg PO daily and valsartan 160mg PO daily (6) Bilateral edema of lower extremity: Plan: cont lasix - give PO today (7) Anemia: Plan: H/H acceptable (8) HLD (hyperlipidemia): Plan: Continue atorvastatin 40mg PO daily (9) Morbid obesity with BMI of 45.0-49.9, adult: Plan: BMI 45 (10) DVT prophylaxis: Plan: lovenox 40mg BID Plan: son updated by phone yesterday evening and again today will need PT/OT Admission and Anticipated Discharge Date Admission Date: July 27, 2021 Subjective patient had poor night of sleep and then when she finally fell asleep he was awoken early this am cough/dyspnea/BARRERA mildly improved today still coughing a scant amount of pink-tinged sputum but no anant blood or large volume of such no chest pain or chest tightness appetite remains good tele wnl overnight - mild sinus steve at times; no block denies any GI symptoms still with impaired taste/smell Review of Systems Review of Systems: gen - no fevers or chills cv - orthopnea but chronic, no chest pain pulm - mild BARRERA w/ walking to bathroom GI - no pain - voiding adequately; made "lot" of urine yesterday s/p lasix IV Physical Exam Physical Exam: gen - morbidly obese, looks better today, less dyspneic and less tachypneic today, more comfortable mouth - MMM neck - no JVD heart - RRR, s1 s2, no murmur lungs - markedly improved wheezing b/l, mild-moderate rales bases, increased work of breathing is improved today abd - soft NT ND BS+ ext - <1+ edema, pulses 2+ b/l psych - a/o x 3 Results & Data Results & Data ([facility]) Vital Signs (Past 12 Hours) Vital Signs Temp Pulse Pulse Resp BP BP Pulse Ox 07/30/21 15:41 36.5 C 60 18 158/84 H 91 07/30/21 15:37 81 20 95 07/30/21 14:26 60 07/30/21 11:46 82 22 94 07/30/21 08:30 77 24 89 L 07/30/21 07:56 36.3 C L 59 L 20 144/77 H 92 Laboratory Results Laboratory Results - last 24 hr 07/30/21 07/30/21 07/30/21 10:00 10:00 10:00 WBC 9.22 RBC 4.27 Hgb 12.8 Hct 40.2 MCV 94.1 MCH 30.0 MCHC 31.8 L RDW Std Deviation 52.7 H RDW Coeff of [place] 15.2 H Plt Count 327 MPV 9.4 Immature Gran % (Auto) 1.0 Neut % (Auto) 87.8 Lymph % (Auto) 8.8 [place] % (Auto) 2.3 Eos % (Auto) 0.0 Baso % (Auto) 0.1 Neut # (Auto) 8.10 H Lymph # (Auto) 0.81 L [place] # (Auto) 0.21 Eos # (Auto) 0.00 Baso # (Auto) 0.01 Immature Gran # (Auto) 0.09 H Sodium 141 Potassium 3.8 Chloride 109 H Carbon Dioxide 24 Anion Gap 8.0 BUN 33 H Creatinine 1.13 Est Cr Clr Drug Dosing 46.0 Est GFR ( Amer) 54.3 Est GFR (Non-Af Amer) 46.8 BUN/Creatinine Ratio 29.1 H Glucose 170 H Calcium 8.8 Magnesium 2.3 C-Reactive Protein 2.57 H Procalcitonin < 0.05 PG Care Time/CCT Total # of Minutes Spent Total Time Spent with Patient: Total time spent is greater than 50% in coordination of care (as documented) at patient's floor/unit and/or counseling patient: Coding Level of Care Code 32202 Subseq Hosp Care Lvl 2 Diagnoses Pneumonia due to 2019 novel coronavirus U07.1; J12.82 Acute respiratory failure with hypoxia J96.01 Acute hypokalemia E87.6 Asthma J45.909 Benign essential hypertension I10 Bilateral edema of lower extremity R60.0 Anemia D64.9 Anemia type: unspecified type HLD (hyperlipidemia) E78.5 Morbid obesity with BMI of 45.0-49.9, adult E66.01; Z68.42 DVT prophylaxis Z29.9 (1) Anemia Anemia type: unspecified type Qualified Code(s): D64.9 - Anemia, unspecified
[2021-07-30] MEDS: SENNA 8.6 MG TAB PO SCH (20:15)
[2021-07-30] MEDS: CETIRIZINE HCL 10 MG TABLET PO SCH (20:15)
[2021-07-30] MEDS: TAMSULOSIN HCL 0.4 MG CAP PO SCH (20:15)
[2021-07-30] MEDS: ASPIRIN 81 MG ECTAB PO SCH (20:15)
[2021-07-30] MEDS: MONTELUKAST SODIUM 10 MG TABLET PO SCH (20:15)
[2021-07-31] MEDS: ALBUTEROL HFA 8 GM INHALER INH SCH ×4 (07:20→19:49)
[2021-07-31 07:38] LABS: Hematocrit (blood only) 36.3 % (37-47); Hemoglobin 11.7 g/dL (12.0-16.0); Mean Corpuscular Hemoglobin 29.7 pg (25-34); Mean Corpuscular Hgb Conc 32.2 g/dL (32-36); Mean Corpuscular Volume 92.1 fL (80-100); Mean Platelet Volume 9.4 fL (7.4-10.4); Platelet Count 303 K/uL (130-400); RDW Coefficient of Variation 14.7 % (11.5-14.5); RDW Standard Deviation 49.5 fL (36.4-46.3); Red Blood Count 3.94 M/uL (4.2-5.4); White Blood Count 7.89 K/uL (4.8-10.8)
[2021-07-31 08:11] LABS: BUN Creatinine Ratio 33.2 (10-20); Calcium 8.5 mg/dl (8.5-10.1); Creatinine Clr Calc Pharmacy 53.5 ml/min; Est GFR (African American) 65.3 ml/min; Est GFR (Non-African American) 56.3 ml/min
[2021-07-31] MEDS: dexAMETHasone 6 MG in SYRINGE 0 ML IV SCH ×2 (10:13→21:48)
[2021-07-31] MEDS: ENOXAPARIN INJ 40 MG/0.4 ML SYR SQ SCH ×2 (10:13→21:48)
[2021-07-31] MEDS: amLODIPine BESYLATE 5 MG TAB PO SCH (10:14)
[2021-07-31] MEDS: VALSARTAN 80 MG TAB PO SCH (10:14)
[2021-07-31] MEDS: CALCIUM 600MG + VIT D 400 IU TAB PO SCH (10:14)
[2021-07-31] MEDS: ATORVASTATIN 40 MG TAB PO SCH (10:14)
[2021-07-31] MEDS: guaiFENesin 600 MG TABCR PO SCH ×2 (10:15→21:46)
[2021-07-31] MEDS: POTASSIUM CHLORIDE CRTAB 20 MEQ TABCR PO SCH (10:15)
[2021-07-31] MEDS: CHOLECALCIFEROL 1,000 UNITS 25 MCG TAB PO SCH (10:15)
[2021-07-31] MEDS: DOCUSATE SODIUM 100 MG CAP PO SCH ×2 (10:15→21:47)
[2021-07-31] MEDS: AZELASTINE HCL 0.1% NASAL 200 SPRAYS/27,400 MCG BTL NAE SCH ×2 (10:16→21:49)
[2021-07-31] MEDS: FLUTICASONE PROPIONATE NA SPR 16 GM BTL NAE SCH (10:16)
[2021-07-31] MEDS: FLUTICASONE/VILANTEROL 200/25MCG 14 PUFFS/INHALER INH SCH (10:17)
[2021-07-31 10:55] LABS: Estimated Average Glucose 134 mg/dl; Hemoglobin A1C 6.3 % (4.5-5.6)
[2021-07-31] MEDS: UMECLIDINIUM BROMIDE 62.5MCG/BLISTER 7 PUFFS/INHALER INH SCH (13:12)
--- NOTE | 2021-07-31 19:51 | Hospitalist Progress Note ---
Date of Service July 31, 2021 Assessment & Plan (1) Pneumonia due to 2019 novel coronavirus: Plan: Improving clinically. O2 requirements have decreased last 24 hours. Dexamethasone: 6mg IV BID started July 27, thus day #5. BID dosing was used due to severe wheezing from asthma. Suspect we can wean to once daily dosing tomorrow if she continues to improve. Remdesivir: deferred at admission as patient was 10+ days out from the start of illness Tocilizumab/baricitinib: despite increasing O2 requirements over the weekend she was not a candidate as CRP was <7.5. Antibiotics deferred - no evidence of complicating bacterial infection, procal also negative. Cont flutter valve, incentive spirometry, mucinex, scheduled albuterol. Cont gentle diuresis, keep I/O balance negative. Cont side positioning; cannot prone. (2) Acute respiratory failure with hypoxia: Plan: 2nd COVID-19 pneumonia +/- pulm edema improving see #1 above (3) Acute hypokalemia: Plan: repleted resolved (4) Asthma: Plan: with exacerbation - 2nd to COVID-19 infection. Continue dexamethasone to 6mg IV BID (higher dose than usual due to asthma exacerbation). Suspect we can wean to 6mg once daily tomorrow on 08/01. Continue bronchodilators and home inhalers. Pulmonary toilet. See above. (5) Benign essential hypertension: Plan: Continue amlodipine 10mg PO daily and valsartan 160mg PO daily Control acceptable (6) Bilateral edema of lower extremity: Plan: cont lasix daily (7) Anemia: Plan: H/H remain acceptable (8) HLD (hyperlipidemia): Plan: Continue atorvastatin 40mg PO daily (9) Morbid obesity with BMI of 45.0-49.9, adult: Plan: BMI 45 (10) Prediabetes: Plan: HbA1C 6.3% discussed her a1c with her gave pre-DM and Hba1C handouts to her diet control for now (11) DVT prophylaxis: Plan: lovenox 40mg BID Plan: son updated by phone again today PT/OT progressing nicely Admission and Anticipated Discharge Date Admission Date: July 27, 2021 Subjective patient had better night overnight slept a little more she overall feels better still with scant amount of pink/white sputum no overt hemoptysis eating well wheezing improved B[place]ERA improved wall-mounted high-flow weaned to 11 Liters today Review of Systems Review of Systems: gen - no fevers or chills cv - no chest pain or tightness GI - no abd pain or nausea Physical Exam Physical Exam: gen - morbidly obese, no distress, continues to look better mouth - MMM neck - no JVD heart - RRR, s1 s2, no murmur lungs - b/l wheezing resolved; mild-moderate rales bases; airation improved; no increased work of breathing abd - soft NT ND BS+ ext - <1+ edema, pulses 2+ b/l psych - a/o x 3 Results & Data Results & Data ([facility]) Vital Signs (Past 12 Hours) Vital Signs Temp Pulse Pulse Resp BP Pulse Ox 07/31/21 19:49 70 20 97 07/31/21 15:41 61 07/31/21 15:19 36.4 C L 67 22 115/66 92 07/31/21 14:29 64 18 92 07/31/21 11:32 36.2 C L 60 20 126/63 95 07/31/21 10:08 69 20 92 Laboratory Results Laboratory Results - last 24 hr 07/31/21 07/31/21 07/31/21 07:05 07:05 07:05 WBC 7.89 RBC 3.94 L Hgb 11.7 L Hct 36.3 L MCV 92.1 MCH 29.7 MCHC 32.2 RDW Std Deviation 49.5 H RDW Coeff of [place] 14.7 H Plt Count 303 MPV 9.4 Sodium 141 Potassium 4.0 Chloride 109 H Carbon Dioxide 24 Anion Gap 8.0 BUN 32 H Creatinine 0.97 Est Cr Clr Drug Dosing 53.5 Est GFR ( Amer) 65.3 Est GFR (Non-Af Amer) 56.3 BUN/Creatinine Ratio 33.2 H Glucose 158 H Estimat Average Glucose 134 Hemoglobin A1c 6.3 H Calcium 8.5 PG Care Time/CCT Total # of Minutes Spent Total Time Spent with Patient: Total time spent is greater than 50% in coordination of care (as documented) at patient's floor/unit and/or counseling patient: Coding Level of Care Code 10934 Subseq Hosp Care Lvl 3 Diagnoses Pneumonia due to 2019 novel coronavirus U07.1; J12.82 Acute respiratory failure with hypoxia J96.01 Acute hypokalemia E87.6 Asthma J45.909 Benign essential hypertension I10 Bilateral edema of lower extremity R60.0 Anemia D64.9 Anemia type: unspecified type HLD (hyperlipidemia) E78.5 Morbid obesity with BMI of 45.0-49.9, adult E66.01; Z68.42 DVT prophylaxis Z29.9 Prediabetes R73.03 (1) Anemia Anemia type: unspecified type Qualified Code(s): D64.9 - Anemia, unspecified
[2021-07-31] MEDS: MONTELUKAST SODIUM 10 MG TABLET PO SCH (21:46)
[2021-07-31] MEDS: TAMSULOSIN HCL 0.4 MG CAP PO SCH (21:47)
[2021-07-31] MEDS: ASPIRIN 81 MG ECTAB PO SCH (21:47)
[2021-07-31] MEDS: SENNA 8.6 MG TAB PO SCH (21:48)
[2021-07-31] MEDS: CETIRIZINE HCL 10 MG TABLET PO SCH (21:48)
[2021-08-01] MEDS: ALBUTEROL HFA 8 GM INHALER INH SCH ×4 (06:44→19:18)
[2021-08-01] MEDS: CALCIUM 600MG + VIT D 400 IU TAB PO SCH (07:44)
[2021-08-01] MEDS: ATORVASTATIN 40 MG TAB PO SCH (07:44)
[2021-08-01] MEDS: ENOXAPARIN INJ 40 MG/0.4 ML SYR SQ SCH ×2 (07:45→20:16)
[2021-08-01] MEDS: POTASSIUM CHLORIDE CRTAB 20 MEQ TABCR PO SCH (07:45)
[2021-08-01] MEDS: VALSARTAN 80 MG TAB PO SCH (07:45)
[2021-08-01] MEDS: guaiFENesin 600 MG TABCR PO SCH ×2 (07:46→20:13)
[2021-08-01] MEDS: dexAMETHasone 6 MG in SYRINGE 0 ML IV SCH (07:46)
[2021-08-01] MEDS: CHOLECALCIFEROL 1,000 UNITS 25 MCG TAB PO SCH (07:47)
[2021-08-01] MEDS: AZELASTINE HCL 0.1% NASAL 200 SPRAYS/27,400 MCG BTL NAE SCH ×2 (07:47→20:14)
[2021-08-01] MEDS: amLODIPine BESYLATE 5 MG TAB PO SCH (07:47)
[2021-08-01] MEDS: FLUTICASONE PROPIONATE NA SPR 16 GM BTL NAE SCH (07:48)
[2021-08-01] MEDS: FLUTICASONE/VILANTEROL 200/25MCG 14 PUFFS/INHALER INH SCH (07:48)
[2021-08-01] MEDS: DOCUSATE SODIUM 100 MG CAP PO SCH ×2 (07:55→20:15)
[2021-08-01 09:19] LABS: Hematocrit (blood only) 40.1 % (37-47); Hemoglobin 13.1 g/dL (12.0-16.0); Mean Corpuscular Hemoglobin 30.2 pg (25-34); Mean Corpuscular Hgb Conc 32.7 g/dL (32-36); Mean Corpuscular Volume 92.4 fL (80-100); Mean Platelet Volume 9.5 fL (7.4-10.4); Platelet Count 328 K/uL (130-400); RDW Coefficient of Variation 14.4 % (11.5-14.5); RDW Standard Deviation 49.3 fL (36.4-46.3); Red Blood Count 4.34 M/uL (4.2-5.4); White Blood Count 10.02 K/uL (4.8-10.8)
[2021-08-01 09:20] LABS: BUN Creatinine Ratio 31.2 (10-20); Creatinine Clr Calc Pharmacy 58.3 ml/min; Est GFR (African American) 72.5 ml/min; Est GFR (Non-African American) 62.5 ml/min
[2021-08-01] MEDS: UMECLIDINIUM BROMIDE 62.5MCG/BLISTER 7 PUFFS/INHALER INH SCH (12:44)
--- NOTE | 2021-08-01 18:22 | Hospitalist Progress Note ---
Date of Service August 01, 2021 Assessment & Plan (1) Pneumonia due to 2019 novel coronavirus: Plan: Dexamethasone: 6mg IV BID started July 27. BID dosing was used due to severe wheezing from asthma. Suspect we can wean to once daily dosing tomorrow if she continues to improve. Remdesivir: deferred at admission as patient was 10+ days out from the start of illness Tocilizumab/baricitinib: Despite increasing O2 requirements over the weekend she was not a candidate as CRP was <7.5. Antibiotics deferred - no evidence of complicating bacterial infection, procal also negative. Cont flutter valve, incentive spirometry, mucinex, scheduled albuterol. Cont gentle diuresis, keep I/O balance negative. Cont side positioning; cannot prone. - Improving. Down to 8L NC. No wheezing on exam. Will reduce steroids to daily tomorrow. (2) Acute respiratory failure with hypoxia: Plan: 2nd COVID-19 pneumonia +/- pulm edema improving see #1 above (3) Acute hypokalemia: Plan: repleted resolved (4) Asthma: Plan: with exacerbation - 2nd to COVID-19 infection. Continue dexamethasone to 6mg IV BID (higher dose than usual due to asthma exacerbation). Continue bronchodilators and home inhalers. Pulmonary toilet. See above. (5) Benign essential hypertension: Plan: Continue amlodipine 10mg PO daily and valsartan 160mg PO daily Control acceptable - BP 140/75 today. (6) Bilateral edema of lower extremity: Plan: cont lasix daily (7) Anemia: Plan: H/H remain acceptable (8) HLD (hyperlipidemia): Plan: Continue atorvastatin 40mg PO daily (9) Morbid obesity with BMI of 45.0-49.9, adult: Plan: BMI 45 (10) Prediabetes: Plan: HbA1C 6.3% discussed her a1c with her gave pre-DM and Hba1C handouts to her diet control for now (11) DVT prophylaxis: Plan: lovenox 40mg BID Admission and Anticipated Discharge Date Admission Date: July 27, 2021 Subjective Improving today. Feeling better and up in a chair when seen. Reports no fevers/chills, chest pain, abdominal pain, nausea, or vomiting. Physical Exam Constitutional: WD/WN, vitals as above Eyes: EOM intact bilaterally; no conjunctival abnormality ENMT: external ear and nose normal, oropharynx normal Neck: trachea midline, no thyromegaly normal visual inspection Respiratory: normal respiratory effort, lungs clear to auscultation no respiratory distress Cardiovascular: RRR, no murmur, no edema Gastrointestinal (Abdomen): Inspection/Auscultation: abdomen normal to inspection; abdomen not distended Musculoskeletal: no cyanosis or clubbing, extremities motor strength 5/5 Skin: no rashes, warm and dry Neurologic: moves all extremities and awake Psychiatric: Orientation: alert, oriented to person and cooperative Results & Data Results & Data ([facility]) Vital Signs (Past 12 Hours) Vital Signs Temp Pulse Pulse Resp BP Pulse Ox Pulse Ox 08/01/21 15:59 36.3 C L 58 L 18 137/77 92 08/01/21 15:43 63 08/01/21 14:40 90 08/01/21 14:29 88 20 92 08/01/21 13:31 90 08/01/21 13:08 36.3 C L 63 20 111/57 L 93 08/01/21 10:19 65 18 91 08/01/21 07:37 36.4 C L 54 L 20 143/81 H 93 08/01/21 07:21 50 L 08/01/21 06:45 57 L 20 92 Pulse Ox Pulse Ox 08/01/21 15:59 08/01/21 15:43 08/01/21 14:40 08/01/21 14:29 08/01/21 13:31 92 86 L 08/01/21 13:08 08/01/21 10:19 08/01/21 07:37 08/01/21 07:21 08/01/21 06:45 PG Care Time/CCT Total # of Minutes Spent Total Time Spent with Patient: Total time spent is greater than 50% in coordination of care (as documented) at patient's floor/unit and/or counseling patient: Coding Level of Care Code 44022 Subseq Hosp Care Lvl 2 Diagnoses Pneumonia due to 2019 novel coronavirus U07.1; J12.82 Acute respiratory failure with hypoxia J96.01 Acute hypokalemia E87.6 Asthma J45.909 Benign essential hypertension I10 Bilateral edema of lower extremity R60.0 Anemia D64.9 Anemia type: unspecified type HLD (hyperlipidemia) E78.5 Morbid obesity with BMI of 45.0-49.9, adult E66.01; Z68.42 Prediabetes R73.03 DVT prophylaxis Z29.9 (1) Anemia Anemia type: unspecified type Qualified Code(s): D64.9 - Anemia, unspecified
[2021-08-01] MEDS: SENNA 8.6 MG TAB PO SCH (20:15)
[2021-08-01] MEDS: CETIRIZINE HCL 10 MG TABLET PO SCH (20:15)
[2021-08-01] MEDS: TAMSULOSIN HCL 0.4 MG CAP PO SCH (20:15)
[2021-08-01] MEDS: ASPIRIN 81 MG ECTAB PO SCH (20:16)
[2021-08-01] MEDS: MONTELUKAST SODIUM 10 MG TABLET PO SCH (20:16)
[2021-08-02] MEDS: ALBUTEROL HFA 8 GM INHALER INH SCH ×4 (07:20→20:24)
[2021-08-02] MEDS: guaiFENesin 600 MG TABCR PO SCH ×2 (09:52→20:17)
[2021-08-02] MEDS: amLODIPine BESYLATE 5 MG TAB PO SCH (09:52)
[2021-08-02] MEDS: POTASSIUM CHLORIDE CRTAB 20 MEQ TABCR PO SCH (09:53)
[2021-08-02] MEDS: VALSARTAN 80 MG TAB PO SCH (09:53)
[2021-08-02] MEDS: CALCIUM 600MG + VIT D 400 IU TAB PO SCH (09:53)
[2021-08-02] MEDS: DOCUSATE SODIUM 100 MG CAP PO SCH ×2 (09:53→20:17)
[2021-08-02] MEDS: ATORVASTATIN 40 MG TAB PO SCH (09:53)
[2021-08-02] MEDS: dexAMETHasone 6 MG in SYRINGE 0 ML IV SCH (09:54)
[2021-08-02] MEDS: ENOXAPARIN INJ 40 MG/0.4 ML SYR SQ SCH (09:54)
[2021-08-02] MEDS: FLUTICASONE PROPIONATE NA SPR 16 GM BTL NAE SCH (09:55)
[2021-08-02] MEDS: CHOLECALCIFEROL 1,000 UNITS 25 MCG TAB PO SCH (09:55)
[2021-08-02] MEDS: AZELASTINE HCL 0.1% NASAL 200 SPRAYS/27,400 MCG BTL NAE SCH ×2 (09:55→20:18)
[2021-08-02] MEDS: FLUTICASONE/VILANTEROL 200/25MCG 14 PUFFS/INHALER INH SCH (09:56)
[2021-08-02] MEDS: UMECLIDINIUM BROMIDE 62.5MCG/BLISTER 7 PUFFS/INHALER INH SCH (09:56)
--- NOTE | 2021-08-02 16:21 | Hospitalist Progress Note ---
Date of Service August 02, 2021 Assessment & Plan (1) Pneumonia due to 2019 novel coronavirus: Plan: Dexamethasone: 6mg IV BID started July 27. BID dosing was used due to severe wheezing from asthma. -> Weaned to daily dosing on 08/02 as no more wheezing present. End course on 08/05/2021. Remdesivir: Deferred at admission as patient was 10+ days out from the start of illness. Tocilizumab/baricitinib: Despite increasing O2 requirements over the weekend she was not a candidate as CRP was <7.5. Presently on 6L, so not a candidate. Antibiotics deferred - no evidence of complicating bacterial infection, procal also negative. Cont flutter valve, incentive spirometry, mucinex, scheduled albuterol. Cont gentle diuresis, keep I/O balance negative. Cont side positioning; cannot prone. - Improving. Down to 6L NC. No wheezing on exam. Planning for discharge. (2) Acute respiratory failure with hypoxia: Plan: 2nd COVID-19 pneumonia +/- pulm edema improving see #1 above (3) Acute hypokalemia: Plan: repleted resolved (4) Asthma: Plan: with exacerbation - 2nd to COVID-19 infection. Continue dexamethasone to 6mg IV BID (higher dose than usual due to asthma exacerbation). Continue bronchodilators and home inhalers. Pulmonary toilet. See above. (5) Benign essential hypertension: Plan: Continue amlodipine 10mg PO daily and valsartan 160mg PO daily Control acceptable - BP 130/75 today. (6) Bilateral edema of lower extremity: Plan: cont lasix daily (7) Anemia: Plan: H/H remain acceptable (8) HLD (hyperlipidemia): Plan: Continue atorvastatin 40mg PO daily (9) Morbid obesity with BMI of 45.0-49.9, adult: Plan: BMI 45 (10) Prediabetes: Plan: HbA1C 6.3% discussed her a1c with her gave pre-DM and Hba1C handouts to her diet control for now (11) DVT prophylaxis: Plan: Lovenox 40mg daily Admission and Anticipated Discharge Date Admission Date: July 27, 2021 Subjective Doing well. No complaints. Feels well. Is worried about her son who was recently admitted. Reports no fevers/chills, chest pain, shortness of breath, abdominal pain, nausea, or vomiting. Physical Exam Constitutional: WD/WN, vitals as above Eyes: EOM intact bilaterally; no conjunctival abnormality ENMT: external ear and nose normal, oropharynx normal Neck: trachea midline, no thyromegaly normal visual inspection Respiratory: normal respiratory effort, lungs clear to auscultation no respiratory distress Cardiovascular: RRR, no murmur, no edema Gastrointestinal (Abdomen): Inspection/Auscultation: abdomen normal to inspection; abdomen not distended Musculoskeletal: no cyanosis or clubbing, extremities motor strength 5/5 Skin: no rashes, warm and dry Neurologic: moves all extremities and awake Psychiatric: Orientation: alert, oriented to person and cooperative Results & Data Results & Data ([facility]) Vital Signs (Past 12 Hours) Vital Signs Temp Pulse Pulse Resp BP Pulse Ox Pulse Ox 08/02/21 15:42 37.0 C 62 20 132/77 91 08/02/21 15:12 65 08/02/21 14:11 60 18 91 08/02/21 12:38 36.4 C 54 L 20 133/77 92 08/02/21 10:33 71 20 92 08/02/21 09:46 36.8 C 60 20 129/73 95 08/02/21 07:30 55 L 08/02/21 07:20 65 20 90 08/02/21 04:49 96 PG Care Time/CCT Total # of Minutes Spent Total Time Spent with Patient: Total time spent is greater than 50% in coordination of care (as documented) at patient's floor/unit and/or counseling patient: Coding Level of Care Code 48091 Subseq Hosp Care Lvl 2 Diagnoses Pneumonia due to 2019 novel coronavirus U07.1; J12.82 Acute respiratory failure with hypoxia J96.01 Acute hypokalemia E87.6 Asthma J45.909 Benign essential hypertension I10 Bilateral edema of lower extremity R60.0 Anemia D64.9 Anemia type: unspecified type HLD (hyperlipidemia) E78.5 Morbid obesity with BMI of 45.0-49.9, adult E66.01; Z68.42 Prediabetes R73.03 DVT prophylaxis Z29.9 (1) Anemia Anemia type: unspecified type Qualified Code(s): D64.9 - Anemia, unspecified
[2021-08-02] MEDS ORDERED: FUROSEMIDE INJ 20 MG/2 ML VIAL IV ONE (16:48)
[2021-08-02] MEDS: ASPIRIN 81 MG ECTAB PO SCH (20:16)
[2021-08-02] MEDS: SENNA 8.6 MG TAB PO SCH (20:17)
[2021-08-02] MEDS: TAMSULOSIN HCL 0.4 MG CAP PO SCH (20:17)
[2021-08-02] MEDS: MONTELUKAST SODIUM 10 MG TABLET PO SCH (20:17)
[2021-08-02] MEDS: CETIRIZINE HCL 10 MG TABLET PO SCH (20:18)
[2021-08-03 06:47] LABS: Hemoglobin 12.8 g/dL (12.0-16.0); Mean Corpuscular Hgb Conc 32.8 g/dL (32-36); Mean Corpuscular Volume 91.3 fL (80-100); Mean Platelet Volume 9.1 fL (7.4-10.4); Platelet Count 350 K/uL (130-400); RDW Coefficient of Variation 14.7 % (11.5-14.5); RDW Standard Deviation 49.3 fL (36.4-46.3); Red Blood Count 4.27 M/uL (4.2-5.4); White Blood Count 9.38 K/uL (4.8-10.8)
[2021-08-03 07:21] LABS: Calcium 8.6 mg/dl (8.5-10.1); Creatinine Clr Calc Pharmacy 48.8 ml/min; Est GFR (African American) 59.3 ml/min; Est GFR (Non-African American) 51.2 ml/min; Magnesium 2.3 mg/dl (1.8-2.4); Potassium 3.8 mmol/L (3.5-5.1)
[2021-08-03] MEDS: ALBUTEROL HFA 8 GM INHALER INH SCH (07:45)
[2021-08-03] MEDS: ATORVASTATIN 40 MG TAB PO SCH (07:50)
[2021-08-03] MEDS: amLODIPine BESYLATE 5 MG TAB PO SCH (07:50)
[2021-08-03] MEDS: CHOLECALCIFEROL 1,000 UNITS 25 MCG TAB PO SCH (07:50)
[2021-08-03] MEDS: VALSARTAN 80 MG TAB PO SCH (07:50)
[2021-08-03] MEDS: POTASSIUM CHLORIDE CRTAB 20 MEQ TABCR PO SCH (07:50)
[2021-08-03] MEDS: DOCUSATE SODIUM 100 MG CAP PO SCH ×2 (07:51→20:36)
[2021-08-03] MEDS: guaiFENesin 600 MG TABCR PO SCH ×2 (07:51→20:35)
[2021-08-03] MEDS: CALCIUM 600MG + VIT D 400 IU TAB PO SCH (07:51)
[2021-08-03] MEDS: ENOXAPARIN INJ 40 MG/0.4 ML SYR SQ SCH (07:51)
[2021-08-03] MEDS: UMECLIDINIUM BROMIDE 62.5MCG/BLISTER 7 PUFFS/INHALER INH SCH (07:52)
[2021-08-03] MEDS: FLUTICASONE/VILANTEROL 200/25MCG 14 PUFFS/INHALER INH SCH (07:52)
[2021-08-03] MEDS: FLUTICASONE PROPIONATE NA SPR 16 GM BTL NAE SCH (07:52)
[2021-08-03] MEDS: AZELASTINE HCL 0.1% NASAL 200 SPRAYS/27,400 MCG BTL NAE SCH ×2 (07:54→20:36)
[2021-08-03] MEDS: dexAMETHasone 6 MG in SYRINGE 0 ML IV SCH (08:00)
[2021-08-03] MEDS ORDERED: ALBUTEROL HFA 8 GM INHALER INH PRN (08:54)
--- NOTE | 2021-08-03 15:40 | Hospitalist Progress Note ---
Date of Service August 03, 2021 Assessment & Plan (1) Pneumonia due to 2019 novel coronavirus: Plan: Dexamethasone: 6mg IV BID started July 27. BID dosing was used due to severe wheezing from asthma. -> Weaned to daily dosing on 08/02 as no more wheezing present. End course on 08/05/2021. Remdesivir: Deferred at admission as patient was 10+ days out from the start of illness. Tocilizumab/baricitinib: Despite increasing O2 requirements over the weekend she was not a candidate as CRP was <7.5. Presently on 6L, so not a candidate. Antibiotics deferred - no evidence of complicating bacterial infection, procal also negative. Cont flutter valve, incentive spirometry, mucinex, scheduled albuterol. Cont gentle diuresis, keep I/O balance negative. Cont side positioning; cannot prone. - Improving. Down to room air at rest and 4L with exertion. Planning for discharge tomorrow. (2) Acute respiratory failure with hypoxia: Plan: 2nd COVID-19 pneumonia +/- pulm edema improving see #1 above (3) Acute hypokalemia: Plan: repleted resolved (4) Asthma: Plan: with exacerbation - 2nd to COVID-19 infection. Continue dexamethasone to 6mg IV daily. Continue bronchodilators and home inhalers. Pulmonary toilet. See above. (5) Benign essential hypertension: Plan: Continue amlodipine 10mg PO daily and valsartan 160mg PO daily Control acceptable - BP 130/75 today. (6) Bilateral edema of lower extremity: Plan: cont lasix daily (7) Anemia: Plan: H/H remain acceptable (8) HLD (hyperlipidemia): Plan: Continue atorvastatin 40mg PO daily (9) Morbid obesity with BMI of 45.0-49.9, adult: Plan: BMI 45 (10) Prediabetes: Plan: HbA1C 6.3% discussed her a1c with her gave pre-DM and Hba1C handouts to her diet control for now (11) DVT prophylaxis: Plan: Lovenox 40mg daily Admission and Anticipated Discharge Date Admission Date: July 27, 2021 Subjective Doing well today. Denies shortness of breath. Reports no fevers/chills, chest pain, shortness of breath, abdominal pain, nausea, or vomiting. Physical Exam Constitutional: WD/WN, vitals as above Eyes: EOM intact bilaterally; no conjunctival abnormality ENMT: external ear and nose normal, oropharynx normal Neck: trachea midline, no thyromegaly normal visual inspection Respiratory: normal respiratory effort, lungs clear to auscultation no respiratory distress Cardiovascular: RRR, no murmur, no edema Gastrointestinal (Abdomen): Inspection/Auscultation: abdomen normal to inspection; abdomen not distended Musculoskeletal: no cyanosis or clubbing, extremities motor strength 5/5 Skin: no rashes, warm and dry Neurologic: moves all extremities and awake Psychiatric: Orientation: alert, oriented to person and cooperative Results & Data Results & Data ([facility]) Vital Signs (Past 12 Hours) Vital Signs Temp Pulse Pulse Pulse Pulse Pulse Pulse 08/03/21 14:12 91 H 91 H 94 H 89 08/03/21 11:35 36.6 C 61 08/03/21 08:41 36.8 C 54 L 08/03/21 08:00 51 L 08/03/21 07:46 60 08/03/21 04:00 36.7 C 52 L Pulse Pulse Resp Resp Resp Resp Resp 08/03/21 14:12 84 79 20 20 20 20 08/03/21 11:35 18 08/03/21 08:41 18 08/03/21 08:00 08/03/21 07:46 16 08/03/21 04:00 18 Resp Resp BP BP Pulse Ox Pulse Ox Pulse Ox 08/03/21 14:12 18 18 87 L 88 L 08/03/21 11:35 116/69 90 08/03/21 08:41 120/75 120/75 90 08/03/21 08:00 08/03/21 07:46 93 08/03/21 04:00 131/65 94 Pulse Ox Pulse Ox Pulse Ox Pulse Ox 08/03/21 14:12 90 85 L 92 89 L 08/03/21 11:35 08/03/21 08:41 08/03/21 08:00 08/03/21 07:46 08/03/21 04:00 PG Care Time/CCT Total # of Minutes Spent Total Time Spent with Patient: Total time spent is greater than 50% in coordination of care (as documented) at patient's floor/unit and/or counseling patient: Coding Level of Care Code 36339 Subseq Hosp Care Lvl 2 Diagnoses Pneumonia due to 2019 novel coronavirus U07.1; J12.82 Acute respiratory failure with hypoxia J96.01 Acute hypokalemia E87.6 Asthma J45.909 Benign essential hypertension I10 Bilateral edema of lower extremity R60.0 Anemia D64.9 Anemia type: unspecified type HLD (hyperlipidemia) E78.5 Morbid obesity with BMI of 45.0-49.9, adult E66.01; Z68.42 Prediabetes R73.03 DVT prophylaxis Z29.9 (1) Anemia Anemia type: unspecified type Qualified Code(s): D64.9 - Anemia, unspecified
[2021-08-03] MEDS: TAMSULOSIN HCL 0.4 MG CAP PO SCH (20:35)
[2021-08-03] MEDS: SENNA 8.6 MG TAB PO SCH (20:36)
[2021-08-03] MEDS: MONTELUKAST SODIUM 10 MG TABLET PO SCH (20:36)
[2021-08-03] MEDS: ASPIRIN 81 MG ECTAB PO SCH (20:37)
[2021-08-03] MEDS: CETIRIZINE HCL 10 MG TABLET PO SCH (20:37)
[2021-08-04] MEDS: ATORVASTATIN 40 MG TAB PO SCH (08:13)
[2021-08-04] MEDS: amLODIPine BESYLATE 5 MG TAB PO SCH (08:13)
[2021-08-04] MEDS: AZELASTINE HCL 0.1% NASAL 200 SPRAYS/27,400 MCG BTL NAE SCH (08:14)
[2021-08-04] MEDS: CALCIUM 600MG + VIT D 400 IU TAB PO SCH (08:14)
[2021-08-04] MEDS: CHOLECALCIFEROL 1,000 UNITS 25 MCG TAB PO SCH (08:14)
[2021-08-04] MEDS: DOCUSATE SODIUM 100 MG CAP PO SCH (08:15)
[2021-08-04] MEDS: dexAMETHasone 6 MG in SYRINGE 0 ML IV SCH (08:15)
[2021-08-04] MEDS: POTASSIUM CHLORIDE CRTAB 20 MEQ TABCR PO SCH (08:15)
[2021-08-04] MEDS: FLUTICASONE PROPIONATE NA SPR 16 GM BTL NAE SCH (08:15)
[2021-08-04] MEDS: guaiFENesin 600 MG TABCR PO SCH (08:16)
[2021-08-04] MEDS: FLUTICASONE/VILANTEROL 200/25MCG 14 PUFFS/INHALER INH SCH (08:16)
[2021-08-04] MEDS: VALSARTAN 80 MG TAB PO SCH (08:16)
[2021-08-04] MEDS: UMECLIDINIUM BROMIDE 62.5MCG/BLISTER 7 PUFFS/INHALER INH SCH (08:16)
[2021-08-04] MEDS: ENOXAPARIN INJ 40 MG/0.4 ML SYR SQ SCH (08:17)
--- NOTE | 2021-08-04 17:23 | Discharge Summary ---
Date of Service August 04, 2021 Admission HPI Per Admitting Provider Alesia Lopez is a 76 year old female who presents to the ER with shortness of breath and fatigue. She lives downstairs from her son and the rest of his family who all have COVID currently. Initial symptoms started 2 weeks ago. She is vaccinated against COVID-19 in November/December but not had the booster vaccine. She reports increasing shortness of breath, non-productive cough, fatigue and generalized weakness. She has asthma and doesn't report having some relief from her albuterol inhaler. She reports good appetite (especially on recent prednisone). Her taste and smell have also now come back. She denies any chest, abdominal pain or diarrhea. She has not taken her usual medications this morning. She was started on treatment for COPD/Pneumonia with prednisone and doxycycline by her PCP. No history of PEs or DVTs. In the ER she is requiring 5LPM O2 to maintain O2 sats > 90%. She received dexamethasone 6mg IV for COVID-19 pneumonia. She was referred to medicine for admission and ongoing management of this. Principal Diagnosis Covid-19 pneumonia Discharge Exam Constitutional WD/WN, vitals as above Eyes EOM intact bilaterally; no conjunctival abnormality ENMT external ear and nose normal, oropharynx normal Neck trachea midline, no thyromegaly normal visual inspection Respiratory normal respiratory effort, lungs clear to auscultation no respiratory distress Cardiovascular RRR, no murmur, no edema Gastrointestinal (Abdomen) Inspection/Auscultation: abdomen normal to inspection; abdomen not distended Musculoskeletal no cyanosis or clubbing, extremities motor strength 5/5 Skin no rashes, warm and dry Neurologic moves all extremities and awake Psychiatric Orientation: alert, oriented to person and cooperative Discharge Data Allergies Allergy/AdvReac Type Severity Reaction Status Date / Time Quinolones Allergy Intermediate ITCHING, Verified 07/27/21 17:12 HIVES levofloxacin Allergy Mild HIVES Verified 07/27/21 17:12 house dust AdvReac Mild SNEEZING Verified 07/28/21 08:54 WITH DUST MITES Consultations 07/27/21 17:31 ED Decision to Admit Stat Hospital Course (1) Pneumonia due to 2019 novel coronavirus: Dexamethasone: 6mg IV BID started July 27. BID dosing was used due to severe wheezing from asthma. -> Weaned to daily dosing on 08/02 as no more wheezing present. Remdesivir: Deferred at admission as patient was 10+ days out from the start of illness. Tocilizumab/baricitinib: Despite increasing O2 requirements over the weekend she was not a candidate as CRP was <7.5. Presently on 6L, so not a candidate. Antibiotics deferred - no evidence of complicating bacterial infection, procal also negative. Cont flutter valve, incentive spirometry, mucinex, scheduled albuterol. Cont gentle diuresis, keep I/O balance negative. Cont side positioning; cannot prone. - Improving. Down to room air at rest and 4L with exertion. Home O2 arranged. No further steroids on discharge per UTD guidelines. Given her DM, I think harms > benefits as she is now clearly in recovery stage and feels well. (2) Acute respiratory failure with hypoxia: 2nd COVID-19 pneumonia +/- pulm edema improving see #1 above (3) Acute hypokalemia: repleted resolved (4) Asthma: with exacerbation - 2nd to COVID-19 infection. Continue dexamethasone to 6mg IV daily. Continue bronchodilators and home inhalers. Pulmonary toilet. See above. (5) Benign essential hypertension: Continue amlodipine 10mg PO daily and valsartan 160mg PO daily Control acceptable - BP 130/75 today. (6) Bilateral edema of lower extremity: [place] legs were at baseline on discharge. - Return to home Lasix PRN dosing on discharge. (7) Anemia: H/H remain acceptable (8) HLD (hyperlipidemia): Continue atorvastatin 40mg PO daily (9) Morbid obesity with BMI of 45.0-49.9, adult: BMI 45 (10) Prediabetes: HbA1C 6.3% discussed her a1c with her gave pre-DM and Hba1C handouts to her diet control for now (11) DVT prophylaxis: Lovenox 40mg daily while in the hospital. Reviewed guidelines from ACCP, ACC, and TIARA - All recommend no post-discharge VTE prophylaxis. She feels well and will be up and moving around, so I do not think further VTE is warranted. Total Time Total Time Spent Total Time Spent (In Minutes): 35 Discharge Plan Discharge Items Patient Disposition: Home - Self-Care Reason For Visit: COVID-19 PNEUMONIA, ACUTE RESPIRATORY FAILURE WITH Discharge Diagnosis: Covid-19 pneumonia Activity: Resume your previous activity Non-emergency contact: Primary Care Provider Call non-emergency contact if: your pain is not controlled Follow-up/Referrals: Arthur Mead III, CRNP [Primary Care Provider] - Diet: Heart Healthy Addtl Attending Provider Instructions: Ms. Lopez, Heladio were admitted to the hospital with Covid-19 pneumonia. Fortunately with antibiotics, steroids, and oxygen, you are doing better. You have finished your antibiotics and steroids while in the hospital. We have arranged home oxygen for you. Please see Dr. Mead next week to make sure you are doing well. You will not be contagious at that point. Pending Studies at Discharge: No Stand-Alone Forms: My [facility] [employer], Smoking Cessation Medications and DC Order Prescriptions: Continued azelastine 137 mcg (0.1 %) aerosol,spray 2 spray INTRANASAL BID Qty: 30 RF: 0 naproxen 500 mg tablet 500 mg PO BID PRN (Reason: Pain) Qty: 60 RF: 0 albuterol sulfate 2.5 mg /3 mL (0.083 %) solution for nebulization See Rx Instructions .ROUTE .COMPLEX Qty: 75 RF: 5 Incruse Ellipta 62.5 mcg/actuation blister with device 1 inh INHALATION DAILY Qty: 1 RF: 5 Hold Instructions: Home Medication placed on hold at Doctor's office multivitamin Tablet 1 tab PO HS RF: 0 sennosides [Senokot] 8.6 mg Tablet 17.2 mg PO HS RF: 0 cetirizine [Zyrtec] 10 mg Tablet 10 mg PO HS RF: 0 dibucaine 1 % Ointment 1 applic VT BID PRN (Reason: Rectal Discomfort) RF: 0 valacyclovir [Valtrex] 1 gram Tablet 2,000 mg PO DIRECTED PRN (Reason: Outbreak) RF: 0 amlodipine 10 mg Tablet 10 mg PO QAM RF: 0 docusate sodium 100 mg Capsule 100 mg PO BID RF: 0 aspirin 81 mg Tablet,Chewable 81 mg PO HS RF: 0 sodium chloride [[place] Nasal] 0.65 % Aerosol,[place] 1 spray INTRANASAL Q4H PRN (Reason: Dry Nasal Passages) RF: 0 omega 3-iep-ayr-fish oil [Fish Oil] 1,000 mg (120 mg-180 mg) Capsule 1,000 mg PO QAM RF: 0 calcium carbonate-vitamin D3 [Calcium 600 with Vitamin D3] 600 mg(1,500mg) - 500 unit Capsule 1 tab PO QAM RF: 0 Preparation H 0.25-14-74.9 % Ointment 1 applic [place] DIRECTED PRN (Reason: Hemorrhoids) RF: 0 tamsulosin 0.4 mg capsule 0.4 mg PO HS RF: 0 montelukast 10 mg tablet 10 mg PO HS RF: 0 potassium chloride 20 mEq tablet extended release 40 meq PO QAM RF: 0 prednisone 10 mg Tablet 10 mg PO UD RF: 0 atorvastatin 40 mg Tablet 40 mg PO DAILY RF: 0 fluticasone propion-salmeterol [Advair Diskus] 500-50 mcg/dose Blister With Device 1 inh INHALATION BID RF: 0 valsartan 160 mg Tablet 160 mg PO DAILY RF: 0 cholecalciferol (vitamin D3) [Vitamin D3] 25 mcg (1,000 unit) Capsule 25 mcg PO DAILY RF: 0 meclizine 12.5 mg tablet 25 mg PO TID PRN (Reason: Dizziness Or Vertigo) RF: 0 furosemide [Lasix] 20 mg tablet 20 mg PO QAM PRN (Reason: Fluid Retention) RF: 0 albuterol sulfate 90 mcg/actuation HFA aerosol inhaler 2 puff inhalation QID PRN (Reason: Shortness Of Breath) RF: 0 fluticasone propionate [Flonase Allergy Relief] 50 mcg/actuation spray,suspension 2 spray INTRANASAL DAILY RF: 0 Discontinued doxycycline hyclate 100 mg capsule 100 mg PO BID RF: 0 Discharge Orders: Discharge Order (Routine); Ordered 08/04/21 Ordered By: Alexandro Simmons/Other Patient Handouts: A1C, Prediabetes, 5 Steps for Eating Healthier Admission Data Admit Date/Time: 07/27/21 18:52 Attending Provider: Alexandro Manriquez Admit Provider: George Diallo Primary Care Provider: Arthur Mead III Other Providers: Alexandro Manriquez Other Interventions: Discharge Summary Assessment (RN) Last Done: 08/04/21 13:22 Coding Level of Care Code D/C DAY MANAGEMENT >30 MINS Diagnoses Pneumonia due to 2019 novel coronavirus U07.1; J12.82 Acute respiratory failure with hypoxia J96.01 Acute hypokalemia E87.6 Asthma J45.909 Benign essential hypertension I10 Bilateral edema of lower extremity R60.0 Anemia D64.9 Anemia type: unspecified type HLD (hyperlipidemia) E78.5 Morbid obesity with BMI of 45.0-49.9, adult E66.01; Z68.42 Prediabetes R73.03 DVT prophylaxis Z29.9
== END 2021-08-04 14:58 | disposition home or self-care (01) | DRG 177 ==
LOC: ED 14:46 → 2W 18:52 → SUATTDRO 18:52 → 2W 21:34